=== PATIENT | female | born 2000 | race Caucasian/White ===

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

== ENCOUNTER 2020-02-01 19:09 | Emergency (ER) | payer BC, SELFPAY ==
[2020-02-01 19:43] VITALS: BP 114/68; PULSE 69; RESP 18; TEMP 36.7; O2SAT 100; BMI 20.3
--- NOTE | 2020-02-01 20:15 | HMH.EDUTC ---
[facility] Disposition Clinical Impression: Rash Disposition: Home, Self-Care Condition on Discharge: Good Instructions: DI for Rash, Methylprednisolone Additional Instructions: Clean skin with mild soap and water Start medrol dose pack on 02/02/20 Follow up with Dermatology for further treatment and evaluation of rash Return if needed Straight to ER if any life threatening symptoms Prescriptions: methylPREDNISolone [Medrol 4mg tab] 4 mg PO DIRECTED #21 tab Transmission Status: Pending to [facility] Referrals: Mikel Garcia MD [Primary Care Provider] - As needed Andrew Salazar MD [Referring] - As needed (Call office for appointment) Time of Disposition: 20:22 Medical Decision Making - Vlad Inquiry Pt receiving controlled substance: No Vlad was queried for this patient: No Vital Signs: 02/01/20 19:43 Temperature 98.0 F Temperature Source Oral Pulse Rate [Radial] 69 Respiratory Rate 18 Blood Pressure [Right Arm] 114/68 Blood Pressure Mean [Right Arm] 83 Blood Pressure Source [Right Arm] Automatic Cuff Blood Pressure Position [Right Arm] Sitting 02 Sat by Pulse Oximetry 100 Oxygen Delivery Method Room Air [facility] HPI - General Stated complaint: Rash Time Seen by Provider: 02/01/20 20:15 Mode of Arrival: Ambulatory Source of Information: Patient Limitations: No Limitations Description of Symptoms (Recalled from Triage Doc. by RN): rash HEENT Symptoms (Recalled from RN notes): No Resp Symptoms (Recalled from RN notes): No Skin Symptoms (Recalled from RN notes): Yes MS Symptoms (Recalled from RN notes): No Functional Status (Recalled from RN notes): wnl - History of Present Illness Provider Complaint: Patient states that she had a rash on her left upper arm about a week ago that she thought was ring worm States that she lives in a dorm at and she got some over the counter Medication and put it on there State that it started drying up and looking better but then she broke out in a different rash all over her chest, back and neck State that it is itching like she had a reaction to something but hasnt changed anything and unsure what she may be having a reactin too - Related Data Previous Rx's Medication Instructions Recorded Brompheniramine/Pseudoephed/Dm 5 - 10 ml PO Q4HP PRN #350 ml 04/27/18 [Bromfed DM Cough Syrup 5mL] Oseltamivir Phosphate [Tamiflu 75 mg PO BID #10 capsule 04/27/18 75mg Capsule] norgestimate 0.25 mg-ethinyl 1 tab PO ONCE 30 Days #30 tab 10/04/19 estradiol 35 mcg tablet methylPREDNISolone [Medrol 4mg 4 mg PO DIRECTED #21 tab 02/01/20 tab] Allergies Allergy/AdvReac Type Severity Reaction Status Date / Time No Known Allergies Allergy Verified 04/18/18 11:02 - Worker's Comp Is this a Worker's Comp case?: No [facility] History - Hepatitis A Screen Drug use history?: No High risk sexual behaviors?: No History of sexually transmitted infection?: No Currently employed?: No Childcare worker?: No Do you have indoor plumbing?: Yes Do you have electricity?: Yes Attestation statement:: This patient has been screened for Hepatitis A risk factors. I have reviewed the patient's past medical history: Yes Laterality Cases: Bilateral: Tonsillectomy Other Surgeries: Yes: Other Amputation: No Fractures: No Comment: & - Social History Smoking Status: Never smoker Alcohol Intake: never Substance Use Type: denies use Occupational Status: other Housing: house Family Hx:: Diabetes, Cancer, Hypertension ROS Obtained: Yes All systems reviewed & no additional complaints, Yes Systems reviewed as appropriate & no additional complaints - Constitutional Constitutional: Reports system reviewed and no additional complaints, except as docu - Eyes Eyes: Reports system reviewed and no additional complaints, except as docu - ENT Ears, Nose, Mouth, and Throat: Reports system reviewed and no additional complaints, except as docu, Denies sor
[2020-02-01 20:30] VITALS: BP 114/68; PULSE 69; RESP 18; TEMP 36.7; O2SAT 100
== END 2020-02-01 20:33 | disposition home or self-care (01) ==
PROVIDERS: Emergency Provider Nurse Practitioner; PCP Family Medicine
DX: R21 Rash and other nonspecific skin eruption (principal)
CPT/HCPCS: 99201

== ENCOUNTER 2020-11-06 13:57 | Emergency (ER) | payer BC, SELFPAY ==
[2020-11-06 14:30] VITALS: BP 116/54; PULSE 91; RESP 18; TEMP 37; O2SAT 99; BMI 21.2
--- NOTE | 2020-11-06 15:19 | HMH.EDUTC ---
[facility] [place] Disposition Clinical Impression: Bee sting reaction Qualifiers: Encounter type: initial encounter Injury intent: undetermined intent Qualified Code(s): T63.444A - Toxic effect of venom of bees, undetermined, initial encounter Disposition: Home, Self-Care Condition on Discharge: Good Instructions: How to Care for an Insect Bite or Sting, Insect Bites and Stings, DI for Insect Bites and Stings, Methylprednisolone Additional Instructions: Antihistamines decrease itching and rash Remove the stinger. Scrape the stinger out with your fingernail, edge of a credit card, or with tweezers. Do not squeeze the wound. Gently wash the area with soap and water. Elevate (raise) the area above the level of your heart, if possible. Prop the area on pillows to keep it raised comfortably. Elevate the area for 10 to 20 minutes each hour or as directed by your healthcare provider. Use compresses. Soak a clean washcloth in cold water, wring it out, and put it on the bite or sting. Use the compress for 10 to 20 minutes each hour or as directed by your healthcare provider. After 24 to 48 hours, change to warm compresses. Over the counter Benadryl may help with itching Over the counter Motrin if you can take may help with inflammation and pain Follow up with your Family Doctor if needed Straight to ER if any life threatening symptoms Start oral Medrol dose pack tomorrow 11/07/20 Prescriptions: methylPREDNISolone [Medrol 4mg tab] 4 mg PO DIRECTED #21 tab Transmission Status: Received by [facility] Referrals: Mikel Garcia MD [Primary Care Provider] - As needed Time of Disposition: 15:38 Medical Decision Making - Vlad Inquiry Pt receiving controlled substance: No Vlad was queried for this patient: No Vital Signs: 11/06/20 14:30 11/06/20 15:43 Temperature 98.6 F 98.6 F Temperature Source Oral Pulse Rate 91 H Pulse Rate [Left] 91 H Respiratory Rate 18 18 Blood Pressure 116/54 L Blood Pressure [Right Arm] 116/54 L Blood Pressure Mean [Right Arm] 74 02 Sat by Pulse Oximetry 99 - Lab Data Lab results reviewed: Yes: I reviewed the patient's lab results. Lab Results 11/06/20 15:14: Tst Clinic Negative Orders (Tests/Meds): ED MEDICATIONS Discontinued Medications Generic Name Dose Route Start Last Admin Trade Name Jens PRN Reason Stop Dose Admin Methylprednisolone Sodium Succinate 125 mg 11/06/20 15:33 11/06/20 15:39 Methylprednisolone Sod Succ 125mg Vial IM 11/06/20 15:34 125 mg ONCE ONE Administration [facility] [place] HPI - General Stated complaint: swollen left foot, bee sting Time Seen by Provider: 11/06/20 15:20 Mode of Arrival: Ambulatory Source of Information: Patient Limitations: No Limitations HEENT Symptoms (Recalled from RN notes): Yes ([place]) Resp Symptoms (Recalled from RN notes): No Skin Symptoms (Recalled from RN notes): Yes (bee sting on her L toe. skin is swollen, warm and painful) MS Symptoms (Recalled from RN notes): No Functional Status (Recalled from RN notes): weakness - History of Present Illness Provider Complaint: Patient states that she was standing in the grass a couple nights ago and something stung her in her left 4th toe/foot States that they took tweezers and pulled out the stinger States that she took Benadryl but the swelling and redness has continued to get worse and is now moving up her foot into her lower leg - Related Data Previous Rx's Medication Instructions Recorded Brompheniramine/Pseudoephed/Dm 5 - 10 ml PO Q4HP PRN #350 ml 04/27/18 [Bromfed DM Cough Syrup 5mL] Oseltamivir Phosphate [Tamiflu 75 mg PO BID #10 capsule 04/27/18 75mg Capsule] norgestimate 0.25 mg-ethinyl 1 tab PO ONCE 30 Days #30 tab 10/04/19 estradiol 35 mcg tablet methylPREDNISolone [Medrol 4mg 4 mg PO DIRECTED #21 tab 02/01/20 tab] methylPREDNISolone [Medrol 4mg 4 mg PO DIRECTED #21 tab 11/06/20 tab] Allergies Allergy/AdvReac Type
[2020-11-06 15:28] LABS: UTC Pregnancy Test, Urine Negative (Negative)
[2020-11-06 15:43] VITALS: BP 116/54; PULSE 91; RESP 18; TEMP 37
== END 2020-11-06 15:57 | disposition home or self-care (01) ==
PROVIDERS: Emergency Provider Nurse Practitioner; PCP Family Medicine
DX: T63.441A Toxic effect of venom of bees, accidental (unintentional), initial encounter (principal)
CPT/HCPCS: 81025; 96372; 99202; G0463

== ENCOUNTER → 2020-11-29 16:03 | Outpatient (CLI) | payer BC, SELFPAY | PROVIDERS: PCP Family Medicine; Visit Provider Nurse Practitioner | DX: Z11.1 Encounter for screening for respiratory tuberculosis (principal) | CPT/HCPCS: 86580 ==

== ENCOUNTER 2020-12-18 21:18 | Emergency (ER) | payer BC, SELFPAY ==
[2020-12-18 22:54] VITALS: BP 116/71; PULSE 74; RESP 18; TEMP 36.8; O2SAT 99; BMI 20.7
--- NOTE | 2020-12-18 23:03 | XR_ITS ---
PROCEDURE INFORMATION: Exam: XR Chest Exam date and time: 12/18/2020 11:03 PM Age: 20 years old Clinical indication: Cough and shortness of breath; Patient HX: Cough, SOA, covid exposure 1 week ago TECHNIQUE: Imaging protocol: XR of the chest. Views: 2 views. COMPARISON: No relevant prior studies available. FINDINGS: Lungs: Unremarkable. No consolidation. Pleural spaces: Unremarkable. No pleural effusion. No pneumothorax. Heart/Mediastinum: Unremarkable. No cardiomegaly. Bones/joints: Unremarkable. IMPRESSION: No acute findings.
[2020-12-18 23:09] LABS: Microscopic, Urine URINE MICROSCOPIC (MICROSCOPIC)
[2020-12-18 23:10] LABS: Appearance,Urine SL CLOUDY (Clear); Bilirubin,Urine Negative (Negative); Blood, Urine Negative (Negative); Color,Urine YELLOW (Yellow); Glucose,Urine (UA) Negative (Negative); Ketones,Urine 1+ (Negative); Leukocyte Esterase,Urine Negative (Negative); Nitrate,Urine Negative (Negative); Protein,Urine Negative (Negative); Specific Gravity, Urine >= 1.030 (1.005-1.030)
[2020-12-18 23:12] LABS: Urine Pregnancy, HCG Qual. Negative (Negative)
[2020-12-18 23:15] LABS: Influenza A, PCR Not Detected (NotDetected); Influenza B, PCR Not Detected (NotDetected)
[2020-12-18 23:19] LABS: Bacteria,Urine Trace /lpf; WBC,Urine Occasional #/hpf (0-3)
[2020-12-18 23:27] LABS: Strep Scrn Group A (Rapid) Negative (Negative)
[2020-12-18 23:33] VITALS: BP 115/68; PULSE 73; O2SAT 99
[2020-12-18 23:33] LABS: Basophils % 1.1 % (0.1-2.0); Eosinophils % 0.5 % (0.1-12.0); Hematocrit 40.1 % (37.0-47.0); Hemoglobin 13.4 g/dL (12.2-16.2); Lymphocytes # 1.3 K/mm3 (0.7-4.5); Mean Corpuscular HGB Conc 33.4 g/dL (31.8-35.4); Mean Corpuscular Hemoglobin 29.6 pg (27.0-31.2); Mean Corpuscular Volume 88.4 fl (81-99); Mean Platelet Volume 8.2 fl (7.4-10.4); Monocytes # 0.3 K/mm3 (0.1-1.0); Monocytes % 10.8 % (1.7-9.3); Neutrophils # 1.2 K/mm3 (1.8-7.8); Neutrophils % 42.7 % (37.0-80.0); Platelet Count 217 K/mm3 (142-424); Red Blood Count 4.54 M/mm3 (4.20-5.40); White Blood Count 2.8 K/mm3 (4.5-13.0)
[2020-12-18 23:37] LABS: Coronavirus 19, PCR Detected (NotDetected)
[2020-12-18 23:40] LABS: Alanine Aminotransferase 31 U/L (12-78); Albumin Level 3.7 g/dl (3.5-5.0); Albumin/Globulin Ratio 1.2 (1.1-1.8); Alkaline Phosphatase 53 U/L (38-126); Anion Gap 12.4 mEq/L (5-15); Aspartate Amino Transferase 33 U/L (14-36); Bilirubin,Total 0.1 mg/dl (0.2-1.3); Blood Urea Nitrogen 4 mg/dl (7-17); Calcium 8.3 mg/dl (8.4-10.2); Carbon Dioxide 27 mmol/L (22.0-30.0); Chloride 104 mmol/L (98-107); Creatinine Clearance Estimated 125 mL/min (50-200); Estimated Glomerular Filt Rate 127 ml/min (>60); GFR (African American) 154 ML/MIN (>60); Glucose 106 mg/dl (74-100); Potassium 3.4 mmoL/L (3.5-5.1); Sodium 140 mmol/L (136-145); Total Protein,Serum 6.7 g/dl (6.3-8.2)
[2020-12-18 23:45] LABS: C-Reactive Protein 7.6 mg/L (0-4)
[2020-12-18 23:56] LABS: Erythrocyte Sedimentation Rate 12 mm/hr (0-20)
[2020-12-18 23:59] LABS: Procalcitonin 0.035 ng/mL (0.0-2.0)
[2020-12-19] VITALS: BP 91/73; PULSE 75; O2SAT 98
[2020-12-19 00:30] VITALS: BP 110/72; PULSE 72; O2SAT 98
--- NOTE | 2020-12-19 00:33 | HMH.EDURI ---
ED Disposition Clinical Impression: COVID-19 Disposition: Home, Self-Care Condition on Discharge: Good Instructions: DI for COVID-19 (Suspected or Confirmed ) Additional Instructions: fluids and see pcp for follow up Referrals: Mikel Garcia MD [Primary Care Provider] - - Critical Care Critical Care Time: No Attestation: On 12/18/20, the high probability of a clinically significant, sudden or life threatening deterioration of the following system(s) required my full and direct attention, intervention and personal management. The time I documented below is in addition to time spent performing reported procedures but includes the following listed in this critical care notation. Medical Decision Making - Medical Records Medical records reviewed: Yes: I reviewed the patient's medical records. - Vlad Inquiry Pt receiving controlled substance: No Vital Signs: 12/18/20 22:54 Temperature 98.3 F Temperature Source Oral Pulse Rate [Right] 74 Respiratory Rate 18 Blood Pressure [Right Arm] 116/71 Blood Pressure Mean [Right Arm] 86 Blood Pressure Source [Right Arm] Automatic Cuff Blood Pressure Position [Right Arm] Sitting 02 Sat by Pulse Oximetry 99 Oxygen Delivery Method Room Air - Lab Data Lab results reviewed: Yes: I reviewed the patient's lab results. Lab Results 12/18/20 22:54: SARS-CoV-2 (PCR) Detected A, Influenza A Untype (PCR) Not detected, Influenza Type B (PCR) Not detected 12/18/20 22:57: Urine Color Yellow, Urine Appearance Sl cloudy, Urine pH 6.0, Ur Specific [place] >= 1.030, Urine Protein Negative, Urine Glucose (UA) Negative, Urine Ketones 1+, Urine Blood Negative, Urine Nitrate Negative, Urine Bilirubin Negative, Urine Urobilinogen 1.0, Ur Leukocyte Esterase Negative, Urine RBC None, Urine WBC Occasional, Ur Squamous Epith Cells 3-5, Urine Bacteria Trace 12/18/20 22:57: Urine HCG, Qual Negative 12/18/20 23:10: Group A Strep Rapid Negative 12/18/20 23:20: WBC 2.8 L, RBC 4.54, Hgb 13.4, Hct 40.1, MCV 88.4, MCH 29.6, MCHC 33.4, RDW 13.0, Plt Count 217, MPV 8.2, Neut % (Auto) 42.7, Lymph % (Auto) 45.0, [place] % (Auto) 10.8 H, Eos % (Auto) 0.5, Baso % (Auto) 1.1, Neut # (Auto) 1.2 L, Lymph # (Auto) 1.3, [place] # (Auto) 0.3, Eos # (Auto) 0.0, Baso # (Auto) 0.0, ESR 12 12/18/20 23:20: Sodium 140, Potassium 3.4 L, Chloride 104, Carbon Dioxide 27, Anion Gap 12.4, BUN 4 L, Creatinine 0.60, Estimated Creat Clear 125, Estimated GFR 127, Est GFR ( Amer) 154, Glucose 106 H, Calcium 8.3 L, Total Bilirubin 0.1 L, AST 33, ALT 31, Alkaline Phosphatase 53, C-Reactive Protein 7.6 H, Total Protein 6.7, Albumin 3.7, Globulin 3.0, Albumin/Globulin Ratio 1.2, Procalcitonin 0.035 Result diagrams: 12/18/20 23:20 12/18/20 23:20 Orders (Tests/Meds): ED MEDICATIONS Generic Name Dose Route Start Last Admin Trade Name Freq PRN Reason Stop Dose Admin Sodium Chloride 1,000 mls @ 999 mls/hr 12/18/20 23:15 Sod Chlor 0.9% 1000ml Bag IV 12/19/20 00:15 .[id number] MARYBETH Discontinued Medications Generic Name Dose Route Start Last Admin Trade Name Freq PRN Reason Stop Dose Admin Dexamethasone Sodium Phosphate 10 mg 12/18/20 23:03 12/18/20 23:14 Dexamethasone 4mg/Ml 1ml Vial IV 12/18/20 23:04 10 mg ONCE ONE Administration Ketorolac Tromethamine 30 mg 12/18/20 23:03 12/18/20 23:15 Ketorolac 30mg/Ml Vial IV 12/18/20 23:04 30 mg ONCE ONE Administration Ondansetron HCl 4 mg 12/18/20 23:03 12/18/20 23:15 Ondansetron 4mg/2ml Vial IV 12/18/20 23:04 4 mg ONCE ONE Administration ORDERS Category Date Time Status Strep Screen Confirmation Stat Micro 12/18/20 23:10 Received - Radiology Data #1 Image(s): Chest Image Reviewed: Yes I have reviewed radiologist's interpretation Preliminary Findings: Normal/NAD Medical Decision Narrative: has covid-19 with stable exam and labs URI/Sore Throat HPI - General Chief Complaint: Upper Respiratory Infectio
[2020-12-19 01:05] VITALS: BP 106/63; PULSE 65; RESP 18; TEMP 37.2; O2SAT 96
== END 2020-12-19 01:10 | disposition home or self-care (01) ==
PROVIDERS: Emergency Provider Emergency Medicine; PCP Family Medicine
DX: U07.1 COVID-19 (principal); R42 Dizziness and giddiness
CPT/HCPCS: 71046; 80053; 81001; 81025; 84145; 85025; 85651; 86140; 87430; 96365; 96375; 99283; J2405; U0003

== ENCOUNTER 2021-05-02 18:11 | Emergency (ER) | payer BC, SELFPAY ==
[2021-05-02 18:15] VITALS: BP 124/83; PULSE 92; RESP 20; TEMP 37; O2SAT 97; BMI 21.2
--- NOTE | 2021-05-02 18:16 | XR_ITS ---
PROCEDURE INFORMATION: Exam: XR Right Foot Exam date and time: 05/02/2021 6:16 PM Age: 20 years old Clinical indication: Injury or trauma; Fall; Sprain or strain; Foot; Right; Additional info: Injured TECHNIQUE: Imaging protocol: XR Right foot. Views: 3 or more views. COMPARISON: No relevant prior studies available. FINDINGS: Bones/joints: Bones appear intact and normally aligned with normal mineralization. A tiny accessory ossicle medial-proximal to the navicular bone. No significant arthritic deformities. There are no lytic skeletal lesions seen. Soft tissues: Mild soft tissue swelling. No radiopaque foreign bodies. No pathologic soft tissue calcification. IMPRESSION: No acute fracture or dislocation.
--- NOTE | 2021-05-02 18:16 | XR_ITS ---
PROCEDURE INFORMATION: Exam: XR Right Ankle Exam date and time: 05/02/2021 6:16 PM Age: 20 years old Clinical indication: Injury or trauma; Fall; Sprain or strain; Ankle; Right; Additional info: Injured TECHNIQUE: Imaging protocol: XR Right ankle. Views: 3 or more views. COMPARISON: CR XR FOOT RT MIN 3V 05/02/2021 6:31 PM FINDINGS: Bones/joints: Bones appear intact and normally aligned with normal mineralization. No significant arthritic deformities. There are no lytic skeletal lesions seen. Suspect small ankle effusion. Soft tissues: Lateral soft tissue swelling/edema.No radiopaque foreign bodies. No pathologic soft tissue calcification. IMPRESSION: 1. No acute fracture or dislocation. 2. Small ankle effusion. 3. Lateral soft tissue swelling, correlate for sprain or contusion.
--- NOTE | 2021-05-02 18:38 | HMH.EDUTC ---
[facility] [place] [facility] [place] Clinical Impression: Ankle sprain Qualifiers: Encounter type: initial encounter Involved ligament of ankle: unspecified ligament Laterality: right Qualified Code(s): S93.401A - Sprain of unspecified ligament of right ankle, initial encounter Disposition: Home, Self-Care Condition on Discharge: Good Instructions: How To Perform RICE (Rest, Ice, Compress, Elevate) Additional Instructions: *weight bearing as tolerated *RICE, Rest the extremity, Ice 15-20 minutes 3-4 times daily, Compress- wear the andres wrap as discussed as much as possible to help reduce swelling and pain, Elevate the extremity when at rest *Andres wrap/air splint is for support and help control swelling, use it except in the shower. Be sure that is not to tight but not to loose either *Elevate when resting *Ibuprofen as directed on package every 6-8 hours as needed for pain an inflammation. If need something more can take Tylenol in between doses of Ibuprofen to help Immediately follow up with your family doctor for new or worsening of symptoms, or no noticeable improvement over the next 3-5 days Follow up with Podiatry if pain continues Return if needed Referrals: Mikel Garcia MD [Primary Care Provider] - As needed Otilia Jo DPM [Staff Physician] - Medical Decision Making - Vlad Inquiry Pt receiving controlled substance: No Vlad was queried for this patient: No Vital Signs: 05/02/21 18:15 Temperature 98.6 F Temperature Source Oral Pulse Rate [Right Brachial] 92 H Respiratory Rate 20 Blood Pressure [Left Arm] 124/83 Blood Pressure Mean [Left Arm] 96 Blood Pressure Source [Left Arm] Automatic Cuff Blood Pressure Position [Left Arm] Sitting 02 Sat by Pulse Oximetry 97 Oxygen Delivery Method Room Air - Radiology Data #1 Image(s): Ankle Image Reviewed: Yes I have reviewed radiologist's interpretation IMPRESSION: 1. No acute fracture or dislocation. 2. Small ankle effusion. 3. Lateral soft tissue swelling, correlate for sprain or contusion. #2 Image(s): Foot/Toes Image Reviewed: Yes I have reviewed radiologist's interpretation IMPRESSION: No acute fracture or dislocation. [facility] [place] [facility] [place] - General Stated complaint: AO01/20 R ankle inj Time Seen by Provider: 05/02/21 18:38 Mode of Arrival: Ambulatory Source of Information: Patient Limitations: No Limitations Description of Symptoms (Recalled from Triage Doc. by RN): PATIENT C/O SWELLING AND PAIN TO RIGHT ANKLE AFTER SLIPPING ON ICE AND FALLING LAST NIGHT HEENT Symptoms (Recalled from RN notes): No Resp Symptoms (Recalled from RN notes): No Skin Symptoms (Recalled from RN notes): No MS Symptoms (Recalled from RN notes): Yes Functional Status (Recalled from RN notes): WNL - History of Present Illness Provider Complaint: Patient states that her dog pulled her down last night on the ice State that when she fell she twisted her right ankle and she has been having pain and swelling in ankle ever since States that today she was still hurting and having pain so she came in to get it checked out - Related Data Home Medications Medication Instructions Recorded Confirmed norgestimate-ethinyl estradioL 1 tab PO ONCE 05/02/21 05/02/21 [Previfem Tablet] Allergies Allergy/AdvReac Type Severity Reaction Status Date / Time No Known Allergies Allergy Verified 11/06/20 14:44 - Worker's Comp Is this a Worker's Comp case?: No [facility] History - Hepatitis A Screen Drug use history?: No High risk sexual behaviors?: No History of sexually transmitted infection?: No Currently employed?: No Childcare worker?: No Do you have indoor plumbing?: Yes Do you have electricity?: Yes Attestation statement:: This patient has been screened for Hepatitis A risk factors. I have reviewed the patient's past medical history: Yes Medical History: Denies:: Diabetes Mellitus Type 1, Diabetes Mellitus Type 2 Laterality Cases: Bilateral: Tonsillectomy Ot
[2021-05-02 19:09] VITALS: BP 124/83; PULSE 92; RESP 20; TEMP 37; O2SAT 97
== END 2021-05-02 19:13 | disposition home or self-care (01) ==
PROVIDERS: Emergency Provider Nurse Practitioner; PCP Family Medicine
DX: S93.401A Sprain of unspecified ligament of right ankle, initial encounter (principal); W00.0XXA Fall on same level due to ice and snow, initial encounter
CPT/HCPCS: 29515; 73610; 73630; 99203; G0463

== ENCOUNTER → 2021-05-06 17:58 | Outpatient (CLI) | payer BC, SELFPAY | PROVIDERS: Visit Provider Nurse Practitioner | DX: Z20.822 Contact with and (suspected) exposure to COVID-19 (principal) | CPT/HCPCS: C9803; U0003; U0005 ==

== ENCOUNTER 2021-05-08 17:38 | Emergency (ER) | payer BC, SELFPAY ==
[2021-05-08 19:00] VITALS: BP 112/70; PULSE 78; RESP 18; TEMP 36.9; O2SAT 99; BMI 21.2
[2021-05-08 19:06] LABS: UTC Influenza A Antigen Negative (Negative); UTC Influenza B Antigen Negative (Negative)
--- NOTE | 2021-05-08 19:37 | HMH.EDUTC ---
[facility] [place] Disposition Clinical Impression: Viral syndrome Disposition: Home, Self-Care Condition on Discharge: Good Instructions: DI for Viral Syndrome, DI for Fever (Symptom) -- Adult Additional Instructions: *Monitor Temp, Over the counter Motrin or Tylenol as directed/as needed Tylenol every 4 hours and Motrin every 6 hours (as long as your family doctor has told you that you can take it) for fever or pain. and straight to ER if unable to lower temp less than 101.0 after medication given *Warm salt water gargles may help to soothe the throat *Throat Lozenges *Warm fluids like tea with honey may help to soothe the throat *Sleep elevated *Humidifier/Vaporizer Follow up IMMEDIATELY for new or worsening symptoms or no Noticeable improvement over the next 48-72 hours. 911 for difficulty breathing or swallowing You were tested for today for COVID19 your test result should be back in the next 48-72 hours, you may check your results on the [facility]D health portal If you are positive someone from the Hospital will be calling you Make sure to drink plenty of water and gatoraid and take vitamin C, D and zinc Referrals: Mikel Garcia MD [Primary Care Provider] - As needed Forms: Work/School Release Medical Decision Making - Vlad Inquiry Pt receiving controlled substance: No Vlad was queried for this patient: No Vital Signs: 05/08/21 19:00 Temperature 98.5 F Temperature Source Oral Pulse Rate [Right Brachial] 78 Respiratory Rate 18 Blood Pressure [Right Arm] 112/70 Blood Pressure Mean [Right Arm] 84 Blood Pressure Source [Right Arm] Automatic Cuff Blood Pressure Position [Right Arm] Sitting 02 Sat by Pulse Oximetry 99 Oxygen Delivery Method Room Air - Lab Data Lab results reviewed: Yes: I reviewed the patient's lab results. Lab Results 05/08/21 18:58: Influenza Type A Ag Negative, Influenza Type B Ag Negative Orders (Tests/Meds): ORDERS Category Date Time Status Covid-19 Nasal PCR ([facility]) Routine Lab 05/08/21 18:50 Received [facility] [place] HPI - General Stated complaint: fever headache Time Seen by Provider: 05/08/21 19:37 Mode of Arrival: Ambulatory Source of Information: Patient Limitations: No Limitations Description of Symptoms (Recalled from Triage Doc. by RN): PATIENT C/O FEVER, HEADACHE, FATIGUE, AND OCCASIONAL NAUSEA SINCE WEDNESDAY HEENT Symptoms (Recalled from RN notes): Yes Resp Symptoms (Recalled from RN notes): No Skin Symptoms (Recalled from RN notes): No MS Symptoms (Recalled from RN notes): No Functional Status (Recalled from RN notes): WNL - History of Present Illness Provider Complaint: Patient states that she has been having body aches, chills and headache for several days State that she was exposed to COVID by boyfriends parents State that she was tested on Wednesday but was negative so now she was feeling worse so she came back in to get tested again - Related Data Home Medications Medication Instructions Recorded Confirmed norgestimate-ethinyl estradioL 1 tab PO ONCE 05/02/21 05/02/21 [Previfem Tablet] Allergies Allergy/AdvReac Type Severity Reaction Status Date / Time No Known Allergies Allergy Verified 11/06/20 14:44 - Worker's Comp Is this a Worker's Comp case?: No [facility] History - Hepatitis A Screen Drug use history?: No High risk sexual behaviors?: No History of sexually transmitted infection?: No Currently employed?: No Childcare worker?: No Do you have indoor plumbing?: Yes Do you have electricity?: Yes Attestation statement:: This patient has been screened for Hepatitis A risk factors. I have reviewed the patient's past medical history: Yes Medical History: Denies:: Diabetes Mellitus Type 1, Diabetes Mellitus Type 2 Laterality Cases: Bilateral: Tonsillectomy Other Surgeries: Yes: Other Amputation: No Fractures: No Comment: & - Social History Smoking Status: Never smoker Alcohol Intake: never Substance Use Type: mary
[2021-05-08 19:55] VITALS: BP 112/70; PULSE 78; RESP 18; TEMP 36.9; O2SAT 99
== END 2021-05-08 19:56 | disposition home or self-care (01) ==
PROVIDERS: Emergency Provider Nurse Practitioner; PCP Family Medicine
DX: B34.9 Viral infection, unspecified (principal); Z20.822 Contact with and (suspected) exposure to COVID-19
CPT/HCPCS: 87804; 99202; C9803; G0463; U0003; U0005

== ENCOUNTER 2021-12-17 17:05 | Emergency (ER) | payer BC, SELFPAY ==
[2021-12-17 18:10] VITALS: BP 114/57; PULSE 62; RESP 18; TEMP 36.8; O2SAT 99; BMI 23.3
--- NOTE | 2021-12-17 18:31 | EXP.UTC ---
Discharge Plan Disposition Patient Disposition: Home, Self-Care Condition: Good Prescriptions Prescriptions: New azithromycin [Zithromax Z-Pascual] 250 mg tablet 250 mg PO DAILY 6 Days Qty: 6 0RF Rx Instructions: start on day 2 of therapy methylprednisolone [Medrol (Pascual)] 4 mg tablets,dose pack See Rx Instructions .Route .COMPLEX 6 Days Qty: 21 0RF Rx Instructions: taper pack; hqlbqfulcrdinjv-hruraitnr-HR [Bromfed DM] 2-30-10 mg/5 mL Syrup 10 ml PO Q4H PRN (Reason: Cough) Qty: 240 0RF No Action norgestimate-ethinyl estradiol 1 EACH tablet 1 tab PO ONCE Referrals Follow up/Referrals: Mikel Garcia MD [Primary Care Provider] - See instructions Clinical Impressions Clinical Impression: Upper respiratory infection Stand Alone Forms Stand Alone Forms: Work/School Release Instructions Patient Instructions: Sore Throat, DI for Sinusitis, Cough Discharge ED Provider: Jayla Akers [facility] [place] HPI General Stated complaint: sore throat,fever,veronica Mode of Arrival: Ambulatory Source of Information: Patient Limitations: No Limitations Time Seen by Provider: 12/17/21 18:31 Description of Symptoms (Recalled from Triage Doc. by RN): PATIENT C/O FEVER, SORE THROAT, CONGESTION, AND NASAL DRAINAGE X 3 DAYS HEENT Symptoms (Recalled from RN notes): Yes Resp Symptoms (Recalled from RN notes): No Skin Symptoms (Recalled from RN notes): No MS Symptoms (Recalled from RN notes): No Functional Status (Recalled from RN notes): WNL History of Present Illness Provider Complaint: Patient states that she hasnt been feeling well for the last few days States thats that she has been having sore throat, sinus congestion and pressure, and fever States that she is in college and has been around alot of people States that today she was still feeling bad so she came in to get checked out Related Data Home Medications Medication Instructions Recorded Confirmed norgestimate 0.25 mg-ethinyl 1 tab PO ONCE control 05/02/21 05/02/21 estradiol 35 mcg tablet Previous Rx's Medication Instructions Recorded azithromycin 250 mg tablet 250 mg PO DAILY 6 days #6 tabs 12/17/21 (Zithromax Z-Pascual) xbovicvkmahfymh-jojahjsikisyacv-LP 10 ml PO Q4H PRN Cough #240 mL 12/17/21 2 mg-30 mg-10 mg/5 mL oral syrup (Bromfed DM) methylprednisolone 4 mg tablets in See Rx Instructions .Route 12/17/21 a dose pack (Medrol (Pascual)) .COMPLEX 6 days #21 tabs Allergies Allergy/AdvReac Type Severity Reaction Status Date / Time No Known Allergies Allergy Verified 11/06/20 14:44 Worker's Comp Is this a Worker's Comp case?: No PFSH PFSH Surgical History (Updated 12/17/21 @ 18:25 by Dana Winkler RN) History of tonsillectomy Social History (Updated 12/17/21 @ 18:25 by Dana Winkler RN) Smoking Status: Never smoker second hand exposure: No alcohol intake: never substance use type: denies use current occupational status: employed Travel in the last 8 weeks: None housing: evening shade ROS Obtained: Yes All systems reviewed & no additional complaints except as documented and Yes Systems reviewed as appropriate & no additional complaints except as documented Constitutional Constitutional: Reports system reviewed and no additional complaints, except as documented, Reports as per HPI, Reports chills, Reports fever(s) and Reports headache(s) ENT Ears, Nose, Mouth, and Throat: Reports system reviewed and no additional complaints, except as documented, Reports as per HPI, Reports headache(s), Reports nasal congestion, Reports nasal discharge and Reports sore throat Cardiovascular Cardiovascular: Reports system reviewed and no additional complaints, except as documented and Reports as per HPI Respiratory Respiratory: Reports system reviewed and no additional complaints, except as documented, Reports as per HPI and Reports cough Gastrointestinal Gastrointestingal: Reports system reviewed and no add
[2021-12-17 18:39] LABS: UTC Strep Screen (Rapid) Negative (Negative)
[2021-12-17 18:52] VITALS: BP 114/57; PULSE 62; RESP 18; TEMP 36.8; O2SAT 99
== END 2021-12-17 19:00 | disposition home or self-care (01) ==
PROVIDERS: Emergency Provider Nurse Practitioner; PCP Family Medicine
DX: J06.9 Acute upper respiratory infection, unspecified (principal)
CPT/HCPCS: 87880; 99212; G0463

== ENCOUNTER 2022-06-01 13:47 | Emergency (ER) | payer BC, SELFPAY ==
[2022-06-01 14:10] VITALS: BP 115/64; PULSE 62; RESP 20; TEMP 37.1; O2SAT 100; BMI 21.9
[2022-06-01 14:29] LABS: UTC Strep Screen (Rapid) Negative (Negative)
[2022-06-01 14:30] LABS: UTC Influenza A Antigen Negative (Negative); UTC Influenza B Antigen Negative (Negative)
--- NOTE | 2022-06-01 14:31 | EXP.UTC ---
Discharge Plan Disposition Patient Disposition: Home, Self-Care Condition: Good Prescriptions Prescriptions: New azithromycin [Zithromax] 250 mg tablet 250 mg PO UD DOSE PK Qty: 6 0RF Rx Instructions: Take two (2) tablets today, then one (1) tablet days #2 thru #5 methylprednisolone 4 mg Tablets,Dose Pack 4 mg PO DIRECTED Qty: 21 0RF phnmzmvazqdujia-cqefjhsjs-MD [Bromfed DM] 2-30-10 mg/5 mL Syrup 5 ml PO Q6H PRN (Reason: Cough) Qty: 240 0RF No Action norgestimate-ethinyl estradiol 1 EACH tablet 1 tab PO ONCE Referrals Follow up/Referrals: Mikel Garcia MD [Primary Care Provider] - See instructions Activity Restrictions/Add. Instructions Additional Instructions/Restrictions: Drink plenty of fluids. Take tylenol or ibuprofen for pain or fever. Take the medications as directed. Follow up with your regular doctor. GO TO THE ER FOR ANY WORSENING SYMPTOMS Clinical Impressions Clinical Impression: Sinusitis, Bronchitis Stand Alone Forms Stand Alone Forms: Work/School Release Instructions Patient Instructions: DI for Sinusitis Discharge ED Provider: Brad Hernandes [facility] General Stated complaint: cough,congested ,cough Mode of Arrival: Ambulatory Source of Information: Patient Limitations: No Limitations Time Seen by Provider: 06/01/22 14:30 Description of Symptoms (Recalled from Triage Doc. by RN): PATIENT C/O COUGH, CONGESTION, CHILLS, BODY ACHES AND HEADACHE THAT STARTED OVER THE WEEKEND HEENT Symptoms (Recalled from RN notes): Yes Resp Symptoms (Recalled from RN notes): Yes Skin Symptoms (Recalled from RN notes): No MS Symptoms (Recalled from RN notes): No Functional Status (Recalled from RN notes): WNL History of Present Illness Provider Complaint: She states that for the past 5 days she has had cough, chills, sore throat, and sinus congestion. Related Data Home Medications Medication Instructions Recorded Confirmed norgestimate 0.25 mg-ethinyl 1 tab PO ONCE control 05/02/21 06/01/22 estradiol 35 mcg tablet Previous Rx's Medication Instructions Recorded azithromycin 250 mg tablet 250 mg PO UD DOSE PK #6 tabs 06/01/22 (Zithromax) bmsqamyjkxcrzzr-aykkbldthmwdtrv-CP 5 ml PO Q6H PRN Cough #240 mL 06/01/22 2 mg-30 mg-10 mg/5 mL oral syrup (Bromfed DM) methylprednisolone 4 mg tablets in 4 mg PO DIRECTED #21 tabs 06/01/22 a dose pack Allergies Allergy/AdvReac Type Severity Reaction Status Date / Time No Known Allergies Allergy Verified 11/06/20 14:44 Worker's Comp Is this a Worker's Comp case?: No PFSH PFS Disclaimer: The information contained in this section may have been updated after the patient was seen, as this information can be updated by other users. Surgical History History of tonsillectomy Social History Smoking Status: Never smoker second hand exposure: No alcohol intake: never substance use type: denies use current occupational status: employed Travel in the last 8 weeks: None housing: house ROS Obtained: Yes All systems reviewed & no additional complaints except as documented Constitutional Constitutional: Reports chills and Reports fever(s) Eyes Eyes: Denies eye discharge ENT Ears, Nose, Mouth, and Throat: Reports as per HPI Cardiovascular Cardiovascular: Denies chest pain Respiratory Respiratory: Denies chest congestion and Reports cough Gastrointestinal Gastrointestingal: Reports nausea; Denies abdominal pain, constipation, cramping, diarrhea or vomiting Musculoskeletal Musculoskeletal: Denies arthralgias Integumentary/Breasts Skin/Breast: Denies rash Neurologic Neurologic: Denies paresthesias Physical Exam General General appearance: alert and in no apparent distress Eye Eye exam: Present normal appearance, PERRL and EOMI ENT ENT exam: Present mucous membr
[2022-06-01 14:32] VITALS: BP 115/64; PULSE 62; RESP 20; TEMP 37.1; O2SAT 100
== END 2022-06-01 15:30 | disposition home or self-care (01) ==
PROVIDERS: Emergency Provider Nurse Practitioner Family; PCP Family Medicine
DX: J32.9 Chronic sinusitis, unspecified (principal); J40 Bronchitis, not specified as acute or chronic
CPT/HCPCS: 87804; 87880; 99212; 99214; G0463

== ENCOUNTER 2022-08-15 16:23 | Emergency (ER) | payer BC, SELFPAY ==
[2022-08-15 16:40] VITALS: BP 97/63; PULSE 67; RESP 20; TEMP 36.9; O2SAT 100; BMI 21.2
[2022-08-15 16:55] LABS: UTC Strep Screen (Rapid) Negative (Negative)
[2022-08-15 16:57] LABS: UTC Influenza A Antigen Negative (Negative)
[2022-08-15 16:59] LABS: UTC Influenza B Antigen Negative (Negative)
--- NOTE | 2022-08-15 17:36 | EXP.UTC ---
Discharge Plan Disposition Patient Disposition: Home, Self-Care Condition: Good Prescriptions Prescriptions: New onfpkbbmrlpypzq-zrnluhifq-AA [Bromfed DM] 2-30-10 mg/5 mL syrup 10 ml PO Q4-6H PRN (Reason: cold symptoms) Qty: 120 0RF No Action norgestimate-ethinyl estradiol 1 EACH tablet 1 tab PO ONCE Referrals Follow up/Referrals: Mikel Garcia MD [Primary Care Provider] - See instructions Clinical Impressions Clinical Impression: Upper respiratory infection Instructions Patient Instructions: DI for Viral Upper Respiratory Infection -- Adult Discharge ED Provider: Geovanna Lentz [facility] [place] HPI General Stated complaint: congested, body aches, headache,sore throat Mode of Arrival: Ambulatory Source of Information: Patient Limitations: No Limitations Time Seen by Provider: 08/15/22 17:35 Description of Symptoms (Recalled from Triage Doc. by RN): PATIENT C/O CONGESTION, FATIGUE, BODY ACHES, NAUSEA AND HEADACHE X 2 DAYS HEENT Symptoms (Recalled from RN notes): Yes Resp Symptoms (Recalled from RN notes): Yes Skin Symptoms (Recalled from RN notes): No MS Symptoms (Recalled from RN notes): No Functional Status (Recalled from RN notes): WNL History of Present Illness Provider Complaint: Pt states that for the last 2 days she has had cough, clear runny nose, congestion, body aches, and fatigue. 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 She reports taking Dayquil for her symptoms. Fianc? has had similar symptoms. Related Data Home Medications Medication Instructions Recorded Confirmed norgestimate 0.25 mg-ethinyl 1 tab PO ONCE control 05/02/21 08/15/22 estradiol 35 mcg tablet Previous Rx's Medication Instructions Recorded ugzoohmppybuufi-tbuyodkjdulsjfs-GU 10 ml PO Q4-6H PRN cold symptoms 08/15/22 2 mg-30 mg-10 mg/5 mL oral syrup #120 mL (Bromfed DM) Allergies Allergy/AdvReac Type Severity Reaction Status Date / Time No Known Allergies Allergy Verified 11/06/20 14:44 Worker's Comp Is this a Worker's Comp case?: No [facility] Disclaimer: The information contained in this section may have been updated after the patient was seen, as this information can be updated by other users. Surgical History History of tonsillectomy Social History Smoking Status: Never smoker second hand exposure: No alcohol intake: never substance use type: denies use current occupational status: employed Travel in the last 8 weeks: None housing: house ROS Obtained: Yes All systems reviewed & no additional complaints except as documented Constitutional Constitutional: Reports system reviewed and no additional complaints, except as documented, Reports fatigue and Reports malaise Eyes Eyes: Reports system reviewed and no additional complaints, except as documented ENT Ears, Nose, Mouth, and Throat: Reports system reviewed and no additional complaints, except as documented, Reports nasal congestion, Reports nasal discharge, Reports post nasal drip and Reports sinus pressure Cardiovascular Cardiovascular: Reports system reviewed and no additional complaints, except as documented Respiratory Respiratory: Reports system reviewed and no additional complaints, except as documented and Reports non-productive cough Gastrointestinal Gastrointestingal: Reports system reviewed and no additional complaints, except as documented Genitourinary Female Genitourinary: Reports system reviewed and no additional complaints, except as documented Musculoskeletal Musculoskeletal: Reports system reviewed and no additional complaints, except as documented Integumentary/Breasts Skin/Breast: Reports system reviewed and no additional complaints, except as documented Neurologic Neurologic: Reports system reviewed and no additional complaints, except as documented Endocrine Endocrine: Reports syst
[2022-08-15 17:44] VITALS: BP 97/63; PULSE 67; RESP 20; TEMP 36.9; O2SAT 100
[2022-08-15 18:10] LABS: Adenovirus,PCR Not Detected (NotDetected); Bordetella Pertussis Not Detected (NotDetected); Chlamydophila Pneumoniae, PCR Not Detected (NotDetected); Coronavirus 229E Not Detected (NotDetected); Coronavirus NL63 Not Detected (NotDetected); Coronavirus OC43 Not Detected (NotDetected); Coronovirus HKU1,PCR Not Detected (NotDetected); Human Metapneumovirus Not Detected (NotDetected); Influenza A, PCR Not Detected (NotDetected); Influenza AH1, 2009 Not Detected (NotDetected); Influenza AH1, PCR Not Detected (NotDetected); Influenza AH3,PCR Not Detected (NotDetected); Influenza B, PCR Not Detected (NotDetected); Mycoplasma Pneumoniae, PCR Not Detected (NotDetected); Parainfluenza 1, PCR Not Detected (NotDetected); Parainfluenza 2, PCR Not Detected (NotDetected); Parainfluenza 3, PCR Not Detected (NotDetected); Parainfluenza 4, PCR Not Detected (NotDetected); Respiratory Syncytial Virus Not Detected (NotDetected); Rhinovirus/Enterovirus Not Detected (NotDetected)
[2022-08-15 19:48] LABS: Coronavirus 19, PCR Detected (NotDetected)
== END 2022-08-15 18:01 | disposition home or self-care (01) ==
PROVIDERS: Emergency Provider Nurse Practitioner Family; PCP Family Medicine
DX: U07.1 COVID-19 (principal); R51.9 Headache, unspecified; M79.18 Myalgia, other site; R53.83 Other fatigue
CPT/HCPCS: 87581; 87632; 87798; 87804; 87880; 99212; 99214; C9803; G0463; U0003; U0005

== ENCOUNTER 2022-10-12 17:18 | Emergency (ER) | payer BC, SELFPAY ==
[2022-10-12 17:25] VITALS: BP 122/85; PULSE 69; RESP 18; TEMP 37; O2SAT 100; BMI 20.3
--- NOTE | 2022-10-12 17:36 | EXP.UTC ---
Discharge Plan Disposition Patient Disposition: Home, Self-Care Condition: Good Prescriptions Prescriptions: New ibuprofen 600 mg tablet 600 mg PO Q6HP PRN (Reason: Moderate Pain) Qty: 20 0RF No Action norgestimate-ethinyl estradiol 1 EACH tablet 1 tab PO ONCE Referrals Follow up/Referrals: Mikel Garcia MD [Primary Care Provider] - See instructions Activity Restrictions/Add. Instructions Additional Instructions/Restrictions: Take Motrin as prescribed for pain Use dental balls as instructed in the [facility] Follow up with your Dentist as scheduled Return if needed Clinical Impressions Clinical Impression: Pain, dental Instructions Patient Instructions: DI for Dental Pain Discharge ED Provider: Jayla Akers [facility] [place] General Stated complaint: tooth ache Mode of Arrival: Ambulatory Source of Information: Patient Limitations: No Limitations Time Seen by Provider: 10/12/22 17:36 Description of Symptoms (Recalled from Triage Doc. by RN): PATIENT C/O TOOTH PAIN TO TOP RIGHT SIDE X 2 DAYS HEENT Symptoms (Recalled from RN notes): Yes Resp Symptoms (Recalled from RN notes): No Skin Symptoms (Recalled from RN notes): No MS Symptoms (Recalled from RN notes): No Functional Status (Recalled from RN notes): WNL History of Present Illness Provider Complaint: Patient states that she has a wisdom tooth coming in and it has been causing her pain States that it is on the right upper back and she is scheduled to have it removed on Wednesday but she has been taking Motrin and Tylenlol but not helping much so she came in to see if there was something she could get to help with the pain and discomfort Related Data Home Medications Medication Instructions Recorded Confirmed norgestimate 0.25 mg-ethinyl 1 tab PO ONCE control 05/02/21 10/12/22 estradiol 35 mcg tablet Previous Rx's Medication Instructions Recorded ibuprofen 600 mg tablet 600 mg PO Q6HP PRN Moderate Pain 10/12/22 #20 tabs Allergies Allergy/AdvReac Type Severity Reaction Status Date / Time No Known Allergies Allergy Verified 11/06/20 14:44 Worker's Comp Is this a Worker's Comp case?: No [facility] Disclaimer: The information contained in this section may have been updated after the patient was seen, as this information can be updated by other users. Surgical History History of tonsillectomy Social History Smoking Status: Never smoker second hand exposure: No alcohol intake: never substance use type: denies use current occupational status: employed Travel in the last 8 weeks: None housing: house ROS Obtained: Yes All systems reviewed & no additional complaints except as documented and Yes Systems reviewed as appropriate & no additional complaints except as documented Constitutional Constitutional: Reports system reviewed and no additional complaints, except as documented and Reports as per HPI ENT Ears, Nose, Mouth, and Throat: Reports system reviewed and no additional complaints, except as documented, Reports as per HPI and Reports dental pain Cardiovascular Cardiovascular: Reports system reviewed and no additional complaints, except as documented and Reports as per HPI Respiratory Respiratory: Reports system reviewed and no additional complaints, except as documented and Reports as per HPI Gastrointestinal Gastrointestingal: Reports system reviewed and no additional complaints, except as documented and as per HPI Musculoskeletal Musculoskeletal: Reports system reviewed and no additional complaints, except as documented and Reports as per HPI Physical Exam General General appearance: alert and in no apparent distress Expanded ENT Exam Mouth exam: Present other (back wisdom tooth on right appears to be half way in no redness no swelling noted in jaw patient reports area tender/sore) Respiratory Re
[2022-10-12 17:48] VITALS: BP 122/85; PULSE 69; RESP 18; TEMP 37; O2SAT 100
[2022-10-12 17:48] LABS: UTC Pregnancy Test, Urine Negative (Negative)
== END 2022-10-12 17:50 | disposition home or self-care (01) ==
PROVIDERS: Emergency Provider Nurse Practitioner; PCP Family Medicine
DX: K08.89 Other specified disorders of teeth and supporting structures (principal)
CPT/HCPCS: 81025; 99212; 99213; G0463

== ENCOUNTER 2023-01-30 17:08 | Emergency (ER) | payer BC, SELFPAY ==
[2023-01-30 17:29] VITALS: BP 117/62; PULSE 66; RESP 14; TEMP 36.7; O2SAT 100; BMI 22.1
--- NOTE | 2023-01-30 17:43 | PC.NURSE ---
Dr. Cade at [facility] for pt eval
--- NOTE | 2023-01-30 17:53 | HMH.EDGENADL ---
Discharge Plan Disposition Patient Disposition: Home, Self-Care Prescriptions Prescriptions: New ondansetron 4 mg tablet,disintegrating 4 mg PO Q8H 4 Days Qty: 12 0RF No Action norgestimate-ethinyl estradiol 1 EACH tablet 1 tab PO ONCE ibuprofen 600 mg tablet 600 mg PO Q6HP PRN (Reason: Moderate Pain) Qty: 20 0RF Referrals Follow up/Referrals: Mikel Garcia MD [Primary Care Provider] - See instructions Activity Restrictions/Add. Instructions Additional Instructions/Restrictions: At this time it was felt you are safe to be discharged home. If new or worsening symptoms please do not hesitate to return the emergency department. Please take your medications as prescribed and follow-up with your oral surgeon as discussed. Clinical Impressions Clinical Impression: Vomiting, Pain in tooth Discharge ED Provider: Vladimir Cade General Adult HPI General Chief complaint: Nausea/Vomiting/Diarrhea Stated complaint: vomiting,and tooth ache Time Seen by Provider: 01/30/23 17:37 Mode of Arrival: Ambulatory Source of Information: Patient Limitations: No Limitations Description of Symptoms (Recalled from ER Triage Doc. by RN): Pt reports dental pain on L upper side of mouth, reports had a wisdom tooth pulled on Wednesday of this week. Pt reports she was told she had a abscess also so was started on antibiotics- amoxicillin. Pt reports pain not helped with ibuprofen and tylenol. Pt reports today has been vomiting and having chills. History of Present Illness HPI narrative: Patient is a 22-year-old female who presents emergency department for evaluation of dental pain and vomiting. History is obtained by patient at bedside. Wednesday this week she had a infected wisdom tooth which was extracted. Patient was subsequently placed on amoxicillin for which she has been compliant. She has had persistent pain that has worsened today at the site of her tooth extraction. Over the last 24 hours patient has developed nonbloody vomiting and limited ability to tolerate p.o. intake, no fevers. No other acute complaints at this time. Related Data Home Medications Medication Instructions Recorded Confirmed norgestimate 0.25 mg-ethinyl 1 tab PO ONCE control 05/02/21 10/12/22 estradiol 35 mcg tablet Previous Rx's Medication Instructions Recorded ibuprofen 600 mg tablet 600 mg PO Q6HP PRN Moderate Pain 10/12/22 #20 tabs ondansetron 4 mg disintegrating 4 mg PO Q8H 4 days #12 tabs 01/30/23 tablet Allergies Allergy/AdvReac Type Severity Reaction Status Date / Time No Known Allergies Allergy Verified 11/06/20 14:44 [facility] Disclaimer: The information contained in this section may have been updated after the patient was seen, as this information can be updated by other users. Surgical History History of tonsillectomy Social History Smoking Status: Never smoker second hand exposure: No alcohol intake: never substance use type: denies use current occupational status: employed Travel in the last 8 weeks: None housing: house ROS Obtained: Yes Systems reviewed as appropriate & no additional complaints except as documented Physical Exam General General appearance: alert and in no apparent distress Head Head exam: atraumatic and normocephalic Eye Eye exam: Present PERRL and EOMI ENT ENT exam: Present normal oropharynx, mucous membranes moist and other (Left maxillary wisdom tooth socket without hemorrhage, clot, or purulence. No fluctuance. No trismus. No asymmetric swelling of the oropharynx.) Neck Neck exam: Present normal inspection and full ROM Chest Chest inspection: Present normal inspection and symmetric chest wall rise Respiratory Respiratory exam: Present normal lung sounds bilaterally; Absent respiratory distress Cardiovascular Cardiovascular exam: Pr
[2023-01-30 18:09] LABS: Coronavirus 19, PCR Not Detected (NotDetected); Influenza A, PCR Not Detected (NotDetected); Influenza B, PCR Not Detected (NotDetected)
[2023-01-30 18:19] LABS: Basophils % 0.2 % (0.1-2.0); Eosinophils # 0.1 K/mm3 (0.0-0.4); Eosinophils % 0.7 % (0.1-12.0); Hematocrit 39.3 % (37.0-47.0); Hemoglobin 13.4 g/dL (12.2-16.2); Lymphocytes # 1.9 K/mm3 (0.7-4.5); Mean Corpuscular HGB Conc 34.2 g/dL (31.8-35.4); Mean Corpuscular Hemoglobin 31.1 pg (27.0-31.2); Mean Corpuscular Volume 91.1 fl (81-99); Mean Platelet Volume 7.8 fl (7.4-10.4); Monocytes # 0.3 K/mm3 (0.1-1.0); Monocytes % 4.4 % (1.7-9.3); Neutrophils # 5.3 K/mm3 (1.8-7.8); Neutrophils % 69.7 % (37.0-80.0); Platelet Count 243 K/mm3 (142-424); Red Blood Count 4.32 M/mm3 (4.20-5.40); Red Cell Distribution Width 12.8 % (11.5-17.5); White Blood Count 7.6 K/mm3 (4.8-10.8)
--- NOTE | 2023-01-30 18:30 | PC.NURSE ---
Rounded on patient; call light within reach of patient
[2023-01-30 18:34] LABS: HCG Qualitative, Serum Negative (Negative)
[2023-01-30 18:37] LABS: Alanine Aminotransferase 44 U/L (12-78); Albumin Level 4.4 g/dl (3.5-5.0); Albumin/Globulin Ratio 1.4 (1.1-1.8); Alkaline Phosphatase 64 U/L (38-126); Anion Gap 12.8 mEq/L (5-15); Aspartate Amino Transferase 54 U/L (14-36); Bilirubin,Total 0.5 mg/dl (0.2-1.3); Blood Urea Nitrogen 7 mg/dl (7-17); Calcium 9.1 mg/dl (8.4-10.2); Carbon Dioxide 22 mmol/L (22.0-30.0); Chloride 105 mmol/L (98-107); Creatinine Clearance Estimated 158 mL/min (50-200); Estimated Glomerular Filt Rate 154 ml/min (>60); GFR (African American) 187 ML/MIN (>60); Globulin 3.1 g/dL (1.3-3.2); Glucose 95 mg/dl (74-100); Lipase 229 U/L (23-300); Potassium 3.8 mmoL/L (3.5-5.1); Sodium 136 mmol/L (136-145); Total Protein,Serum 7.5 g/dl (6.3-8.2)
[2023-01-30 18:47] VITALS: BP 105/75; PULSE 61; O2SAT 98
--- NOTE | 2023-01-30 18:52 | PC.NURSE ---
Pt given water for PO challenge
--- NOTE | 2023-01-30 18:58 | PC.NURSE ---
Dr. Cade at BS to update pt on POC. Pt able to drink water without any problems.
[2023-01-30 19:00] VITALS: BP 98/77; PULSE 61; RESP 16; O2SAT 100
--- NOTE | 2023-01-30 19:26 | PC.NURSE ---
Rounded on patient; nothing needed at this time. Call light within reach of patient
[2023-01-30 19:34] VITALS: BP 130/70; PULSE 52; RESP 16; TEMP 36.6; O2SAT 100
== END 2023-01-30 19:35 | disposition home or self-care (01) ==
PROVIDERS: Emergency Provider Emergency Medicine; PCP Family Medicine
DX: R11.2 Nausea with vomiting, unspecified (principal); K08.89 Other specified disorders of teeth and supporting structures
CPT/HCPCS: 80053; 83690; 84703; 85025; 87636; 96361; 96374; 99284; J2405

== ENCOUNTER 2023-05-24 08:00 | Emergency (ER) | payer BC, SELFPAY ==
[2023-05-24 08:15] VITALS: BP 121/77; PULSE 60; RESP 19; TEMP 36.8; O2SAT 99; BMI 24.0
--- NOTE | 2023-05-24 08:20 | EXP.UTC ---
Discharge Plan Disposition Patient Disposition: Home, Self-Care Condition: Good Prescriptions Prescriptions: No Action norgestimate-ethinyl estradiol 1 EACH tablet 1 tab PO ONCE Referrals Follow up/Referrals: Mikel Garcia MD [Primary Care Provider] - See instructions Activity Restrictions/Add. Instructions Additional Instructions/Restrictions: *Monitor Temp, Over the counter Motrin or Tylenol as directed/as needed Tylenol every 4 hours and Motrin every 6 hours (as long as your family doctor has told you that you can take it) for fever or pain. and straight to ER if unable to lower temp less than 101.0 after medication given *Warm salt water gargles may help to soothe the throat *Throat Lozenges? *Warm fluids like tea with honey may help to soothe the throat? *Sleep elevated *Humidifier/Vaporizer Follow up IMMEDIATELY for new or worsening symptoms or no Noticeable improvement over the next 48-72 hours. 911 for difficulty breathing or swallowing Clinical Impressions Clinical Impression: Viral upper respiratory illness Instructions Patient Instructions: DI for Fever (Symptom) -- Adult, DI for Viral Syndrome Discharge ED Provider: Jayla Akers [facility] General Stated complaint: fever wants tested for flu Time Seen by Provider: 05/24/23 08:21 History of Present Illness Provider Complaint: Patient states that several of her family members has the flu and last night she started with low grade fever, nausea and drainage states that she came in this morning to get tested for the flu to make sure she doesnt have it Related Data Home Medications Medication Instructions Recorded Confirmed norgestimate 0.25 mg-ethinyl 1 tab PO ONCE control 05/02/21 05/24/23 estradiol 35 mcg tablet Allergies Allergy/AdvReac Type Severity Reaction Status Date / Time No Known Allergies Allergy Verified 11/06/20 14:44 [facility] Disclaimer: The information contained in this section may have been updated after the patient was seen, as this information can be updated by other users. Surgical History History of tonsillectomy Social History Smoking Status: Never smoker second hand exposure: No alcohol intake: never substance use type: denies use current occupational status: employed Travel in the last 8 weeks: None housing: house ROS Obtained: Yes All systems reviewed & no additional complaints except as documented and Yes Systems reviewed as appropriate & no additional complaints except as documented Constitutional Constitutional: Reports system reviewed and no additional complaints, except as documented, Reports as per HPI, Reports body ache and Reports fever(s) ENT Ears, Nose, Mouth, and Throat: Reports system reviewed and no additional complaints, except as documented, Reports as per HPI, Reports nasal congestion and Reports nasal discharge Cardiovascular Cardiovascular: Reports system reviewed and no additional complaints, except as documented and Reports as per HPI Respiratory Respiratory: Reports system reviewed and no additional complaints, except as documented and Reports as per HPI Gastrointestinal Gastrointestingal: Reports system reviewed and no additional complaints, except as documented, as per HPI and nausea Genitourinary Female Genitourinary: Reports system reviewed and no additional complaints, except as documented and Reports as per HPI Physical Exam General General appearance: alert and in no apparent distress ENT ENT exam: Present mucous membranes moist Respiratory Respiratory exam: Present normal lung sounds bilaterally; Absent respiratory distress or wheezes Cardiovascular Cardiovascular exam: Present regular rate, normal rhythm and normal heart sounds Neurological Exam Neurological exam: Present alert, oriented X3 and normal gait Medical Decision Making Vlad Inquiry Pt receiving controlled substance: No Vlad was queried for this patient: No Lab Data Lab results reviewed: Yes I reviewed the patient's lab results.
[2023-05-24 08:37] LABS: UTC Influenza A Antigen Negative (Negative); UTC Influenza B Antigen Negative (Negative)
[2023-05-24 08:56] VITALS: BP 121/77; PULSE 60; RESP 19; TEMP 36.8; O2SAT 99
== END 2023-05-24 08:57 | disposition home or self-care (01) ==
PROVIDERS: Emergency Provider Nurse Practitioner; PCP Family Medicine
DX: R09.81 Nasal congestion (principal); R50.9 Fever, unspecified; J06.9 Acute upper respiratory infection, unspecified; M79.18 Myalgia, other site; B34.9 Viral infection, unspecified
CPT/HCPCS: 87804; 99212; 99213; G0463

== ENCOUNTER 2024-01-24 11:13 | Day surgery (SDC) | payer OTHER, BC, SELFPAY ==
[2024-01-21 13:41] VITALS: BMI 22.1
[2024-01-24] MEDS: LACTATED RINGERS 1000ML 1,000 ML 25 ML IV (11:50)
[2024-01-24 11:52] VITALS: BP 114/66; PULSE 70; RESP 18; TEMP 36.9; O2SAT 100
[2024-01-24 12:04] LABS: Urine Pregnancy, HCG Qual. Negative (Negative)
--- NOTE | 2024-01-24 12:04 | P.PNANES_ITS ---
[facility] Disclaimer: The information contained in this section may have been updated after the patient was seen, as this information can be updated by other users. Medical History (Updated 01/24/24 @ 11:52 by Vignesh Herring RN) No significant past medical history Surgical History History of tonsillectomy Family History Other No significant family history Social History Smoking Status: Never smoker second hand exposure: No alcohol intake: never substance use type: denies use current occupational status: employed Travel in the last 8 weeks: None housing: house [facility] Anesthesia Checklist Patient Identification Patient Identification: Arm Band and Verbal (Name & ) Structural Data Admitted From: Home Planned Operative Procedure/s: Colonoscopy Consent for Planned Operative Procedure(s) Verified: Yes Verified Documents: Surgical Consent and History and Physical NPO Status Verified Time NPO: 10:00 Chart Verification Results Verified: CBC, BMP and Chest Xray Additional verifications Patient : No Anesthesia Reactions: No Cardiovascular Assessment Heart Sounds: S1 & S2 Pulse Rhythm: Irregular Peripheral Edema: No Airway Assessment Mallampati Score:: Class II C-Spine Mobility Assessed: Yes TMJ Mobility Assessed: Yes (+ LEFT TMJ dysfunction/pain) Dentition: Good Dentition (Nothing loose per pt.) Neurological Assessment Level of Consciousness: Awake, Alert, Appropriate and Follows Commands Hx Seizures: No Numbness or tingling in extremities: No Anesthesia Plan Anesthesia Risk discussed: Yes Anesthesia Plan: Verified ASA Class: I Anesthesia Type: MAC
--- NOTE | 2024-01-24 12:39 | P.HP_ITS ---
History of Present Illness *Admission Date: 01/24/24 *Reason for visit:: Screening *History of present illness: [default value] who is here for [default value]. The examination is deemed medically necessary for [default value]. The patient has been seen, interviewed and examined prior to the procedure by both myself and the anesthesia provider. [facility] Disclaimer: The information contained in this section may have been updated after the patient was seen, as this information can be updated by other users. Medical History (Updated 01/24/24 @ 11:52 by Vignesh Herring RN) No significant past medical history Surgical History History of tonsillectomy Family History (Reviewed 01/24/24 @ :52 by Vignesh Herring RN) Other No significant family history Social History Smoking Status: Never smoker second hand exposure: No alcohol intake: never substance use type: denies use current occupational status: employed Travel in the last 8 weeks: None housing: house Other Medical History Have you received the Flu Vaccine for this season: No Have you received the Pneumonia Vaccine: No Meds Home Medications and Allergies Home Medications ?Medication ?Instructions ?Recorded ?Confirmed ?Type norgestimate 0.25 mg-ethinyl 1 tab PO ONCE control 05/02/21 01/21/24 History estradiol 35 mcg tablet New Prescriptions to Start Prescriptions: Allergies Allergy/AdvReac Type Severity Reaction Status Date / Time No Known Allergies Allergy Verified 01/21/24 13:41 Exam Data for Last 24 hours Vital signs and Labs for Last 24 Hours: Temp Pulse Resp BP Pulse Ox O2 Del Method 98.4 F 70 18 114/66 100 Room Air 01/24/24 11:52 01/24/24 11:52 01/24/24 11:52 01/24/24 11:52 01/24/24 11:52 01/24/24 11:52 Laboratory Results - last 24 hr 01/24/24 11:40: Urine HCG, Qual Negative I & O for Last 24 hours: Intake & Output 01/21/24 01/22/24 01/23/24 01/24/24 23:59 23:59 23:59 23:59 Weight 125 lb
[2024-01-24 13:07] VITALS: O2SAT 100
--- NOTE | 2024-01-24 13:13 | P.HP_ITS ---
History of Present Illness *Admission Date: 01/24/24 *Reason for visit:: Bright red rectal bleeding *History of present illness: Ms. Cody is a 23-year-old female who is here for diagnostic colonoscopy. The examination is deemed medically necessary for bright red rectal bleeding. The patient has been seen, interviewed and examined prior to the procedure by both myself and the anesthesia provider. [facility] Disclaimer: The information contained in this section may have been updated after the patient was seen, as this information can be updated by other users. Medical History (Updated 01/24/24 @ 13:14 by Stas Lugo II, MD) No significant past medical history Surgical History History of tonsillectomy Family History Other No significant family history Social History Smoking Status: Never smoker second hand exposure: No alcohol intake: never substance use type: denies use current occupational status: employed Travel in the last 8 weeks: None housing: house Other Medical History Have you received the Flu Vaccine for this season: No Have you received the Pneumonia Vaccine: No Meds Home Medications and Allergies Home Medications ?Medication ?Instructions ?Recorded ?Confirmed ?Type norgestimate 0.25 mg-ethinyl 1 tab PO ONCE control 05/02/21 01/21/24 History estradiol 35 mcg tablet New Prescriptions to Start Prescriptions: Allergies Allergy/AdvReac Type Severity Reaction Status Date / Time No Known Allergies Allergy Verified 01/21/24 13:41 Exam Data for Last 24 hours Vital signs and Labs for Last 24 Hours: Temp Pulse Resp BP Pulse Ox O2 Del Method O2 Flow Rate 98.4 F 70 18 114/66 100 Nasal Cannula 5 01/24/24 11:52 01/24/24 11:52 01/24/24 11:52 01/24/24 11:52 01/24/24 11:52 01/24/24 13:07 01/24/24 13:07 Laboratory Results - last 24 hr 01/24/24 11:40: Urine HCG, Qual Negative I & O for Last 24 hours: Intake & Output 01/21/24 01/22/24 01/23/24 01/24/24 23:59 23:59 23:59 23:59 Weight 125 lb *Routine HEENT Exam Head: Present normocephalic Eye: Present EOMI and PERRL ENT: Present mucous membranes moist *Routine Neck Exam Neck: Present supple *Routine Respiratory Exam Respiratory: Present CTA bilaterally *Routine Cardiovascular Exam Cardiovascular: Present RRR *Routine Abdominal Exam Abdominal: Present soft and normoactive bowel sounds; Absent tenderness *Routine Rectal Exam Rectal:: deferred *Routine Genitalia Exam Genitalia:: deferred *Routine Extremities Exam Extremities: Absent cyanosis, clubbing or edema *Routine Skin Exam Skin: Present warm; Absent rash *Routine Neurological Exam Neurological: Present alert and oriented X3 Assessment and Plan *Assessment and plan (1) Bright red rectal bleeding: Status: Acute Category: Medical Code(s): K62.5 - Hemorrhage of anus and rectum (2) Constipation: Status: Acute Category: Medical Code(s): K59.00 - Constipation, unspecified Plan A/P: 1. Bright red rectal bleeding is the preprocedural diagnosis. The patient will be anesthetized/sedated using MAC sedation. The patient has been seen and examined. Cardiac and lung assessment prior to the examination is stable. Proceed with planned diagnostic colonoscopy
--- NOTE | 2024-01-24 13:15 | P.PCN_ITS ---
[facility] Procedure Note Date: 01/24/24 Time: 13:15 Procedure Note:: Colonoscopy Procedure Report: Colonoscopy with monopolar coagulation/ablation of internal hemorrhoids Endoscopist: Stas Lugo II, MD Referring physician: Duane Munroe MD Date of Procedure: January 24, 2024 Equipment: Olympus 190 variable stiffness pediatric colonoscope Sedation: MAC sedation Indication: Ms. Cody is a 23-year-old female with longstanding constipation. In the last couple of months, she had bright red rectal bleeding that occurred daily for 3 weeks. Now she gets of bright red blood intermittently. This is new. She does report some dyspepsia with epigastric abdominal discomfort. She has bloating, early satiety and occasional nausea and heartburn. She does note mucus with her stools intermittently. She reports no weight loss. She often has trapped gas and is unable to pass flatus. This leads to some crampy abdominal discomfort. She does state that her paternal grandfather had colon cancer. Procedure: Prior to the procedure, a history and physical exam was performed, and patient's medications and allergies were reviewed. The risks, benefits and alternatives of the sedation and procedure were discussed with the patient. All questions were answered and informed consent was obtained. The patient was brought to the procedure room. Patient identification and proposed procedure were verified by the physician and the nurse. The patient was placed in a left lateral decubitus position and the scope was passed under direct vision. Throughout the procedure, the patient's blood pressure, pulse, and oxygen saturations were monitored continuously. The colonoscopy was accomplished without difficulty. The patient tolerated the procedure well. Findings: On digital rectal examination there was normal rectal tone. There were no external hemorrhoids. The colonoscope was introduced through the anal canal to the rectum and advanced to the cecum. The ileocecal valve and appendiceal orifice were identified. The scope was advanced a short distance into the ileum which appeared grossly normal. The scope was then withdrawn into the colon. The cecum, ascending, transverse, descending, sigmoid and rectum were grossly normal. There were no mucosal abnormalities identified. Upon retroflexion within the rectum there were grade 2 internal hemorrhoids.3 columns of hemorrhoids were ablated/coagulated using forced coagulation to destruction. The preparation was excellent throughout with [place] Preparation Score of 9. The cecal time was 8 minutes. Impression: 1. Normal colonoscopy with intubation of the terminal ileum 2. Grade 2 internal hemorrhoids status post monopolar ablation/coagulation Plan: I would encourage a fiber bowel regimen on a long-term daily maintenance basis. We may also discuss other treatments for chronic idiopathic constipation including Linzess or Trulance.
[2024-01-24 13:32] VITALS: BP 91/47; PULSE 79; RESP 16; TEMP 36.6; O2SAT 100
[2024-01-24 13:42] VITALS: BP 88/45; PULSE 52; RESP 16; O2SAT 100
[2024-01-24 13:52] VITALS: BP 104/69; PULSE 59; RESP 16; O2SAT 100
[2024-01-24 14:01] VITALS: BP 102/54; PULSE 52; RESP 16; O2SAT 100
== END 2024-01-24 14:11 | disposition home or self-care (01) ==
PROVIDERS: PCP Family Medicine; Visit Provider Internal Medicine Gastroenterology
PROC: (CPT 45388; principal; 2024-01-24 13:00)
DX: K62.5 Hemorrhage of anus and rectum (principal); K59.00 Constipation, unspecified; R10.13 Epigastric pain; Z80.0 Family history of malignant neoplasm of digestive organs; R14.0 Abdominal distension (gaseous); K64.1 Second degree hemorrhoids
CPT/HCPCS: 45388; 81025; J7120

== ENCOUNTER 2024-02-04 10:40 | Outpatient (CLI) | payer OTHER, BC, SELFPAY ==
[2024-02-04 12:16] LABS: 25-OH Vitamin D, Total 43.2 ng/mL (30-100)
[2024-02-04 12:30] LABS: Thyroid Stimulating Hormone 1.34 uIU/mL (0.465-4.68)
[2024-02-04 15:11] LABS: HIV (1&2) Antibody Rapid NONREACTIVE (NONREACTIVE)
[2024-02-05 08:51] LABS: Estradiol 5.7 pg/mL (.); FSH 0.8 mIU/mL (.); HCV Ab Non Reactive (Non Reactive); LH 0.5 mIU/mL (.); Testosterone,Total 26 ng/dL (13-71)
== END 2024-02-04 23:59 | disposition home or self-care (01) ==
LOC: LAB 10:41
PROVIDERS: PCP Family Medicine; Visit Provider Obstetrics & Gynecology
DX: R53.83 Other fatigue (principal); Z11.3 Encounter for screening for infections with a predominantly sexual mode of transmission
CPT/HCPCS: 36415; 82306; 82670; 83001; 83002; 84403; 84443; 86803; 87389

== ENCOUNTER 2024-03-01 10:04 | Emergency (ER) | payer OTHER, BC, SELFPAY ==
--- NOTE | 2024-03-01 11:49 | ED_ITS ---
Discharge Plan Disposition Patient Disposition: Home, Self-Care Condition: Good Prescriptions Prescriptions: New promethazine-DM 6.25-15 mg/5 mL Syrup 5 ml PO Q6H PRN (Reason: Cough) Qty: 240 0RF azithromycin [Zithromax] 250 mg tablet 250 mg PO UD DOSE PK Qty: 6 0RF Rx Instructions: Take two (2) tablets today, then one (1) tablet days #2 thru #5 benzonatate 100 mg capsule 100 mg PO TIDP PRN (Reason: Cough) Qty: 30 0RF methylprednisolone 4 mg Tablets,Dose Pack 4 mg PO DIRECTED 6 Days Qty: 21 0RF Rx Instructions: Take 1 pack as directed for 6 days Referrals Follow up/Referrals: Duane Munroe MD [Primary Care Provider] - See instructions Activity Restrictions/Add. Instructions Additional Instructions/Restrictions: Drink plenty of fluids. Take tylenol or ibuprofen for pain or fever. Take the medications as directed. Follow up with your regular doctor. GO TO THE ER FOR ANY WORSENING SYMPTOMS The cough medication (promethazine dm) will make you drowsy, so don't drive or operate heavy machinery after taking it. Clinical Impressions Clinical Impression: Bronchitis Instructions Patient Instructions: DI for Acute Bronchitis, Promethazine, Benzonatate, Methylprednisolone, Azithromycin Print Language Print Language: Latvian Discharge ED Provider: Brad Hernandes [facility] [place] General Stated complaint: cough congestion Time Seen by Provider: 03/01/24 11:49 Related Data Previous Rx's ?Medication ?Instructions ?Recorded azithromycin 250 mg tablet 250 mg PO UD DOSE PK #6 tabs 03/01/24 (Zithromax) benzonatate 100 mg capsule 100 mg PO TIDP PRN Cough #30 caps 03/01/24 methylprednisolone 4 mg tablets in 4 mg PO DIRECTED 6 days #21 tabs 03/01/24 a dose pack promethazine-DM 6.25 mg-15 mg/5 mL 5 ml PO Q6H PRN Cough #240 mL 03/01/24 oral syrup Allergies Allergy/AdvReac Type Severity Reaction Status Date / Time No Known Allergies Allergy Verified 02/04/24 08:42 [facility] Disclaimer: The information contained in this section may have been updated after the patient was seen, as this information can be updated by other users. Medical History (Updated 03/01/24 @ 12:02 by Brad Hernandes APRN) Family history of breast cancer Decreased libido without sexual dysfunction Women's annual routine gynecological examination No significant past medical history Surgical History (Updated 02/04/24 @ 08:49 by Su Wiggins MA) Hx of colonoscopy History of tonsillectomy Family History Other No significant family history Social History Smoking Status: Never smoker second hand exposure: No alcohol intake: never substance use type: denies use current occupational status: employed housing: house ROS Obtained: Yes All systems reviewed & no additional complaints except as documented Constitutional Constitutional: Reports chills and Reports fever(s) Eyes Eyes: Denies eye discharge ENT Ears, Nose, Mouth, and Throat: Reports as per HPI Cardiovascular Cardiovascular: Denies chest pain Respiratory Respiratory: Denies chest congestion and Reports cough Gastrointestinal Gastrointestingal: Reports nausea; Denies abdominal pain, constipation, cramping, diarrhea or vomiting Musculoskeletal Musculoskeletal: Denies arthralgias Integumentary/Breasts Skin/Breast: Denies rash Neurologic Neurologic: Denies paresthesias Physical Exam General General appearance: alert and in no apparent distress Head Head exam: atraumatic, normocephalic and normal inspection Eye Eye exam: Present normal appearance, PERRL and EOMI ENT ENT exam: Present mucous membranes moist and normal external ear exam Expanded ENT Exam TM/Canal exam: Bilateral TM: erythema and bulging Nose exam: Absent sinus tenderness Mouth exam: Present normal external inspection; Absent drooling Teeth exam: Present normal inspection Throat exam: Present tonsillar erythema, tonsillomegaly and tonsillar exudate Neck Neck exam: Present normal inspection, full ROM and trachea midline; Absent tenderness, meningismus or lymphadenopathy Chest Chest inspection: Present normal inspection and symmetric chest wall rise; Absent tenderness Respiratory Respiratory exam: Present normal lung sounds bilaterally; Absent respiratory distress, wheezes, stridor or accessory muscle use Cardiovascular Cardiovascular exam: Present regular rate and normal rhythm; Absent systolic murmur or diastolic murmur Abdominal Exam Abdominal exam: Present soft and normal bowel sounds; Absent distention, tenderness, guarding, rebound or rigidity Extremities Exam Extremities exam: Present normal inspection and normal capillary refill; Absent calf tenderness Back Exam Back exam: Present normal inspection and full ROM; Absent tenderness, CVA tenderness (R) or CVA tenderness (L) Neurological Exam Neurological exam: Present alert, oriented X3 and CN II-XII intact Psychiatric Psychiatric exam: Present normal affect and normal mood Skin Skin exam: Present warm, dry, intact and normal color Medical Decision Making Medical Records Medical records reviewed: No I reviewed the patient's medical records. Screening: Per USPSTF and CDC recommendations, given the prevalence of disease in our region, it is our hospital?s policy to screen for HIV and viral Hepatitis for all patients aged 18 and over and those with ongoing risk factors. Vlad Inquiry Pt receiving controlled substance: No Lab Data Lab results reviewed: Yes I reviewed the patient's lab results.
[2024-03-01 11:50] VITALS: BP 115/69; PULSE 83; RESP 19; TEMP 36.4; O2SAT 100; BMI 23.0
[2024-03-01 12:04] VITALS: BP 115/69; PULSE 83; RESP 19; TEMP 36.4; O2SAT 100
== END 2024-03-01 12:09 | disposition home or self-care (01) ==
PROVIDERS: Emergency Provider Nurse Practitioner Family; PCP Family Medicine
DX: J20.9 Acute bronchitis, unspecified (principal)
CPT/HCPCS: 99213; G0381

== ENCOUNTER 2024-04-29 09:18 | Outpatient (CLI) | payer OTHER, BC, SELFPAY ==
[2024-04-29 10:50] LABS: Chol/HDL Ratio 2.4 (1-3.5); Cholesterol 129 mg/dl (140-200); HDL Cholesterol 54 mg/dl (40-60); Triglycerides 42 mg/dl (30-150); VLDL Cholesterol 8 mg/dL (0-40)
[2024-04-29 11:02] LABS: Direct LDL Cholesterol 61.75 mg/dL (100-129)
[2024-04-30 08:25] LABS: Estradiol 31.9 pg/mL (.); FSH 8.2 mIU/mL (.); LH 8.5 mIU/mL (.); Prolactin 12.3 ng/mL (4.8-33.4)
[2024-05-01 13:43] LABS: Anti-Centromere B Antibodies <0.2 AI (0.0-0.9); Anti-DNA (DS) Ab Qn <1 IU/mL (0-9); Anti-Jo-1 <0.2 AI (0.0-0.9); Anti-Smith Antibody <0.2 AI (0.0-0.9); Antichromatin Antibodies <0.2 AI (0.0-0.9); Antiscleroderma-70 Antibodies <0.2 AI (0.0-0.9); RNP Antibodies <0.2 AI (0.0-0.9); Sjogren's Anti-SS-A <0.2 AI (0.0-0.9); Sjogren's Anti-SS-B <0.2 AI (0.0-0.9)
== END 2024-04-29 23:59 | disposition home or self-care (01) ==
PROVIDERS: PCP Family Medicine; Visit Provider Obstetrics & Gynecology
DX: R68.82 Decreased libido (principal); Z80.3 Family history of malignant neoplasm of breast
CPT/HCPCS: 36415; 80061; 82670; 83001; 83002; 84146; 86225; 86235

== ENCOUNTER 2024-06-12 09:01 | Outpatient (CLI) | payer OTHER, BC, SELFPAY ==
[2024-06-12 10:04] LABS: HCG,Quantitative 27 mIU/ml (0-5.42)
[2024-06-13 03:36] LABS: Progesterone 0.2 ng/mL (.)
== END 2024-06-12 23:59 | disposition home or self-care (01) ==
PROVIDERS: PCP Family Medicine; Visit Provider Obstetrics & Gynecology
DX: Z32.01 Encounter for pregnancy test, result positive (principal)
CPT/HCPCS: 36415; 84144; 84702

== ENCOUNTER 2024-06-14 08:05 | Outpatient (CLI) | payer OTHER, BC, SELFPAY ==
[2024-06-14 10:06] LABS: HCG,Quantitative 21 mIU/ml (0-5.42)
== END 2024-06-14 23:59 | disposition home or self-care (01) ==
LOC: LAB 08:06
PROVIDERS: PCP Family Medicine; Visit Provider Obstetrics & Gynecology
DX: Z32.01 Encounter for pregnancy test, result positive (principal)
CPT/HCPCS: 36415; 84702

== ENCOUNTER 2024-06-21 07:59 | Outpatient (CLI) | payer OTHER, BC, SELFPAY ==
[2024-06-21 09:25] LABS: HCG,Quantitative < 2 mIU/ml (0-5.42)
== END 2024-06-21 23:59 | disposition home or self-care (01) ==
LOC: LAB 08:00
PROVIDERS: PCP Family Medicine; Visit Provider Obstetrics & Gynecology
DX: O03.9 Complete or unspecified spontaneous abortion without complication (principal)
CPT/HCPCS: 36415; 84702

== ENCOUNTER 2024-09-11 09:01 | Outpatient (CLI) | payer OTHER, BC, SELFPAY ==
[2024-09-11 11:26] LABS: HCG,Quantitative 475 mIU/ml (0-5.42)
[2024-09-12 08:13] LABS: Progesterone 11.4 ng/mL (.)
== END 2024-09-11 23:59 | disposition home or self-care (01) ==
LOC: LAB 09:02
PROVIDERS: PCP Family Medicine; Visit Provider Obstetrics & Gynecology
DX: Z32.01 Encounter for pregnancy test, result positive (principal)
CPT/HCPCS: 36415; 84144; 84702

== ENCOUNTER 2024-09-13 10:06 | Outpatient (CLI) | payer OTHER, BC, SELFPAY ==
[2024-09-13 11:31] LABS: HCG,Quantitative 1210 mIU/ml (0-5.42)
== END 2024-09-13 23:59 | disposition home or self-care (01) ==
LOC: LAB 10:07
PROVIDERS: PCP Family Medicine; Visit Provider Obstetrics & Gynecology
DX: O03.9 Complete or unspecified spontaneous abortion without complication (principal); Z3A.00 Weeks of gestation of pregnancy not specified
CPT/HCPCS: 36415; 84702

== ENCOUNTER 2024-09-19 09:30 | Outpatient (CLI) | payer OTHER, BC, SELFPAY ==
--- OUTSIDE RECORDS SUMMARY | 2023-06-07 11:00 | XMS_ITS ---
Author Organization [facility] Address [address] [id number] Care Team Providers Care Electric Distribution Engineer Name Role Phone Ibeth Collado Primary Care Provider Lauren Garcia Unavailable [phone] Duane Munroe Unavailable [phone] Allergies No Known Allergies Results Component Value [...] a day for 30 day(s) 08/28/2020 Not-Taking Conway-Linyah 0.25-35 MG-MCG TAKE ONE TABLET BY MOUTH EVERY DAY for 28 day(s) Active Vital Signs Blood pressure systolic 126 mm Hg 06/07/19 24 Blood pressure diastolic 84 mm Hg 024 Heart Rate 89 /min 06/07/2023 Height 63.75 in 06/07/2023 Weight 123 lbs 06/07/2023 BMI 21.28 kg/m2 06/07/2023 Encounters Encounter Location Date Provider Diagnosis [facility] [address] [facility] [address] [place] [id number] 06/07/2023 Duane Munroe Constipation, unspecified constipation type [...] * Treva CODYDOB: 1 (24 yo F)Acc No.[id number]:06/07/2023 Progress Notes Patient: Treva KWAN Provider: Jennifer Munroe M.D. :2000 A ge:22 Y S ex:Female Date:06/07/2023 Address:[address] [place] [phone] Pcp:Ibeth Collado Subjective: * Chief Complaints: * [...] to secondhand smoke. * Medications: T aking Conway-Linyah 0.25-35 MG-MCG Tablet TAKE ONE TABLET BY [...] Procedure Codes: 3 6416 CAPILLARY BLOOD DRAW, 17973 CBC WITH AUTO DIFF * Follow Up: v ia phone to report progress * Billing Information: * Visit Code: 11533 Office Visit, Est Pt., Level 3. * Procedure Codes: 01993 CAPILLARY BLOOD DRAW. 56272 CBC WITH AUTO DIFF. * Electronic signature of Vida Munroe MD on 09/20/2024 at 11:37 AM EDT Sign off status: Pending * Provider: Jennifer Munroe M.D. Date: 0 06/07/2023 Generated for Jaycee cope/Alan/eTransmitting on: 0 09/20/2024 11:37 AM EDT History and Physical Notes * HPI [...]
--- OUTSIDE RECORDS SUMMARY | 2023-11-12 10:30 | XMS_ITS ---
Author Organization [facility] Address [address] [place] [phone] Care Team Providers Care Trimmer Sorter Name Role Phone Ibeth oCllado Primary Care Provider [phone] Lauren Garcia Unavailable [phone] Duane Munroe Unavailable [phone] Allergies No Known Allergies Results Component Value [...] Duration) Notes Start Date End Date Status [place]-Linyah 0.25-35 MG-MCG TAKE ONE TABL ET BY [...] [address] [place] [phone] 11/12/2023 Duane Munroe Generalized abdomina l pain [...] * Treva CODYDOB: 1 (24 yo F)Acc No.[id number]:11/12/2023 Progress Notes Patient: Treva KWAN Provider: Jennifer Munroe M.D. :2000 A ge:23 Y S ex:Female Date:11/12/2023 Address:[address] [place] [address] , [place], [id number] Pcp:Ibeth Collado Subjective: * Chief Complaints: * [...] needed Orally Once a day , Taking [place]-Linyah 0.25-35 MG-MCG Tablet TAKE ONE TABLET BY [...] [facility]23 9:54:51 AM > faxed order to Kristen Blackwell at * Procedure Codes: 3 6416 CAPILLARY BLOOD DRAW, 19449 CBC WITH AUTO DIFF * Follow Up: v ia phone to report progress * Billing Information: * Visit Code: 67218 Office Visit, Est Pt., Level 3. * Procedure Codes: 95199 CAPILLARY BLOOD DRAW. 01647 CBC WITH AUTO DIFF. * Electronic signature of Vida Munroe MD on 09/20/2024 at 11:37 AM EDT Sign off status: Pending * Provider: Jennifer Munroe M.D. Date: 0 11/12/2023 Generated for Mishai anatoliy/Alan/eTransmitting on: 0 09/20/2024 11:37 AM EDT History [...]
--- OUTSIDE RECORDS SUMMARY | 2024-09-20 11:38 | XMS_ITS | Patient Health Record ---
Author Organization [facility] Address [address] [place] [id number] Care Team Providers Care Marine Steam Fitter Helper Name Role Phone Ibeth Collado Primary Care Provider Lauren Garcia Unavailable [phone] Duane Munroe Unavailable [phone] Allergies No Known Allergies Results Component Value [...] - 38 plat 186 100 - 400 Medications Medication SIG (Take, Route, Frequency, Duration) Notes Start Date End Date Status [place]-Linyah 0.25-35 MG-MCG TAKE ONE TABL ET BY MOUTH EVERY DAY for 28 day(s) Active Lactulose 10 GM/15ML 15 ml as needed Ora lly Once a day 06/07/2023 Active Immunizations Vaccine Route Administration Date Status Comme nts COVID 19 Pfizer Unknown 08/13/2021 Administered Fluzone PF Quad (6-35 months) Unknown 02/13/2021 Administered Fluzone PF Quad (6-35 months) Unknown 02/03/2023 Administered Hep A- Pediatric IM Intramuscular 11/16/2017 Administered IPV Unknown 09/14/2001 Administered IPV IM Intramuscular 08/04/2005 Administered Menactra IM Intramuscular 11/13/2011 Administered Menactra IM Intramuscular 11/16/2017 Administered MMR SC Subcutaneous 08/04/2005 Administered ppd ID Intradermal 11/10/2019 Administered Tetanus Dtap-Daptacel (under 7yrs) IM Intramuscular 08/04/2005 Administered Tetanus Tdap-Adacel (over 7yrs) IM Intramuscular 11/13/2011 Administered Tetanus Tdap-Adacel (over 7yrs) IM Intramuscular 07/31/2022 Administered tuberculin (ppd) ID Intradermal 10/30/2019 Administered Varivax Unknown 09/14/2001 Administered Varivax IM Intramuscular 11/18/2011 Administered xGardasil IM Intramuscular 11/13/2011 Administered Problems Problem Type SNOMED Code ICD Code Onset Dates Problem Status W/U Status Risk Notes Problem Seasonal allergi c rhinitis (477.9) Active confirmed Problem 882300273 Routine sports physical exam (Z02.5) Active confirmed Problem 835311201 Hypoglycemia (E16.2) Active confirmed Problem 53245197 Constipation, unspecified constipation type (K59.00) Active confirmed Problem 51981025 Acute viral conjunctivitis of left eye (B30.9) Active confirmed Vital Signs Heart Rate 90 /min 11/12/2023 Blood pressure diastolic 80 mm Hg 11/12/2023 Height 63.75 in 11/12/2023 Blood pressure systolic 122 mm Hg 11/12/2023 Weight 131.6 lbs 11/12/2023 BMI 22.76 kg/m2 11/12/2023 Encounters Encounter Location Date Provider Diagnosis [facility] [address] [facility] [address] [place], [place] [id number] 11/12/2023 Duane [place] Generalized abdomina l pain R10.84 and BRBPR (bright red blood per rectum) K62.5 Assessments Encounter Date Diagnosis (ICD Code) Assessment Notes Treatment Notes Treatment Clinical Notes Section Notes 11/12/2023 Generalized abdominal pain (ICD-10 - R10.84) 11/12/2023 BRBPR (bright red blood per rectum) (ICD-10 - K62.5) Plan Of Treatment Pending Test Test Name Order Date colonoscopy 11/12/2023 Insurance Providers Payer Name Payer Address Payer Phone Subscriber Number Group Number Insured Name Patient Relationship to Insured Coverage Start Date Coverage End Date [facility] [address] [address] [place] [address] [id number] Vivi Anand Child - Insured has Financial Responsibility [employer] [address] [place] [address] [id number] Vivi Anand Child - Insured has Financial Responsibility Medical (General) History Surgical History Surgery Date(Month/Year) Tonsilectomy, Adenoidectomy 09/2009 Hospitalization History Reason Date(Month/Year)
[2024-09-21 07:16] LABS: Neisseria gonorrhoeae, NAA Negative (Negative)
== END 2024-09-19 23:59 | disposition home or self-care (01) ==
LOC: LAB.DROPOF 09-20 11:32
PROVIDERS: PCP Obstetrics & Gynecology; Visit Provider Obstetrics & Gynecology
DX: O36.80X0 Pregnancy with inconclusive fetal viability, not applicable or unspecified (principal); Z3A.00 Weeks of gestation of pregnancy not specified
CPT/HCPCS: 87491; 87591

== ENCOUNTER 2024-10-02 14:29 | Outpatient (CLI) | payer OTHER, BC, SELFPAY ==
--- OUTSIDE RECORDS SUMMARY | 2023-06-07 11:00 | XMS_ITS ---
Author Organization [facility] Address [address] [id number] Care Team Providers Care Linen Attendant Name Role Phone Ibeth Collado Primary Care Provider Lauren Garcia Unavailable [phone] Duane Munroe Unavailable [phone] Allergies No Known Allergies Results Component Value Reference Range Notes CBC Fingerstick (in house) Reviewed date:06/08/2023 08:27:23 AM Interpretation: Performing Lab: Notes/Report: wbc 6.3 3.5 - 10 lym 41.1 15 - 50 mid 7.4 2 - 15 gran 51.5 35 - 80 rbc 4.37 3.5 - 5.5 hgb 13.1 11.5 - 16.5 hct 39.3 35 - 55 mcv 89.8 75 - 100 mch 30.0 25 - 35 mchc 33.4 31 - 38 plat 187 100 - 400 REASON FOR VISIT GI issues and rash Medications Medication SIG (Take, Route, Frequency, Duration) Notes Start Date End Date Status Lactulose 10 GM/15ML 15 ml as needed Ora lly Once a day 06/07/2023 Active Trulance 3 MG 1 tab(s) orally once a day for 30 day(s) 08/28/2020 Not-Taking Bryan-Linyah 0.25-35 MG-MCG TAKE ONE TABLET BY MOUTH EVERY DAY for 28 day(s) Active Vital Signs Blood pressure systolic 126 mm Hg 06/07/19 24 Blood pressure diastolic 84 mm Hg 024 Heart Rate 89 /min 06/07/2023 Height 63.75 in 06/07/2023 Weight 123 lbs 06/07/2023 BMI 21.28 kg/m2 06/07/2023 Encounters Encounter Location Date Provider Diagnosis [facility] [address] [facility] [address] [place] [id number] 06/07/2023 Duane Munroe Constipation, unspecified constipation type K59.00 and Rash R21 Assessments Encounter Date Diagnosis (ICD Code) Assessment Notes Treatment Notes Treatment Clinical Notes Section Notes 06/07/2023 Constipation, unspecified constipation type (ICD-10 - K59.00) 06/07/2023 Rash (ICD-10 - R21) Plan Of Treatment Medication Medication Name Sig Start Date Stop Date Notes Lactulose 10 GM/15ML 15 ml as needed Orally Once a day Next Appt Details Follow Up: via phone to repo rt progress, Reason: Progress Notes * Treva CODYDOB: 1 (24 yo F)Acc No.[id number]:06/07/2023 Progress Notes Patient: Treva KWAN Provider: Jennifer Munroe M.D. :2000 A ge:22 Y S ex:Female Date:06/07/2023 Address:[address] [place] [id number] Pcp:Ibeth Collado Subjective: * Chief Complaints: * 1 . GI issues and rash. * HPI: D ermatology: 22 year old female presents with c/o rash p t is here for a rash underneath breast, abdomen, and back. ongoing x one week. . G astroenterology: c/o Constipation p t is here for persisent constipation, pain in abdomen, bloating, blood in stool. blood is bright in color, even when no stool is passed. ongoing x three weeks.. * ROS: C ARDIOLOGY: no D izziness. n o S hortness of breath. G ASTROENTEROLOGY: no N ausea. n o V omiting. U ROLOGY: no D ifficulty urinating. n o B lood in urine. * Medical History: M edical History Verified. * Surgical History: T onsilectomy, Adenoidectomy 09/2009. * Hospitalization/Major Diagno stic Procedure: D enies Past Hospitalization. * Family History: F ather: alive 53 yrs. M other: alive 51 yrs. 1 brother(s) . . * Social History: C URRENT TOBACCO USE S moking Status: Patient does NOT smoke. C affeine: yes, frequency:. Home smoke detector use: yes. Past smoking status: no, Smoking status: very rarely exposed to secondhand smoke. * Medications: T aking Bryan-Linyah 0.25-35 MG-MCG Tablet TAKE ONE TABLET BY MOUTH EVERY DAY , Not-Taking Trulance 3 MG Tablet 1 tab(s) orally once a day , Medication List reviewed and reconciled with the patient * Allergies: N .K.D.A. Objective: * Vitals: W t:123, Temp:98.1, BP:126/84, HR:89, Nurse: , Ht: 63.75, BMI:21.28. * Examination: G eneral Examination: General Appearance: N AD. Heart: R SR. Lungs: c lear to auscultation. Abdomen: bowel sounds present, soft and nontender. Skin: v viki faint reddened area of skin over the mid upper abdomen. Assessment: * Assessment: 1. C onstipation, unspecified constipation type - K59.00 (Primary) 2 . R rashard - R21 Plan: * Treatment: 2. R rashard L AB: CBC Fingerstick (in house) (Collection Date & Time - 06/07/2023) Value Reference Range w bc 6.3 3.5 - 10 * l ym 41.1 15 - 50 * m id 7.4 2 - 15 * g ran 51.5 35 - 80 * r bc 4.37 3.5 - 5.5 * h gb 13.1 11.5 - 16.5 * h ct 39.3 35 - 55 * m cv 89.8 75 - 100 * m ch 30.0 25 - 35 * m chc 33.4 31 - 38 * p lat 187 100 - 400 * Anny Blackwell 06/07/2023 3:03:01 PM > , Provider reviewed results while patient in office. * Procedure Codes: 3 6416 CAPILLARY BLOOD DRAW, 75690 CBC WITH AUTO DIFF * Follow Up: v ia phone to report progress * Billing Information: * Visit Code: 44963 Office Visit, Est Pt., Level 3. * Procedure Codes: 67349 CAPILLARY BLOOD DRAW. 49264 CBC WITH AUTO DIFF. * Electronic signature of Vida Munroe MD on 10/02/2024 at 02:32 PM EDT Sign off status: Pending * Provider: Jennifer Munroe M.D. Date: 0 06/07/2023 Generated for Jaycee cope/Alan/eTransmitting on: 0 10/02/2024 02:32 PM EDT History and Physical Notes * HPI (History of Present Illness) Category Sub-Category Detail Notes Category Not es Dermatology rash pt is here for a rash underneath breast, abdomen, and back. ongoing x one week. Gastroenterology Constipation pt is here for persisent constipation, pain in abdomen, bloating, blood in stool. blood is bright in color, even when no stool is passed. ongoing x three weeks. Examination Category Sub-Category Detail Notes Category Not es General Examination Heart: RSR Lungs: clear to auscultatio n Abdomen: bowel sounds present , soft and nontender General Appearance: NAD Skin: very faint reddened area of skin over the mid upper abdomen
--- OUTSIDE RECORDS SUMMARY | 2023-11-12 10:30 | XMS_ITS ---
Author Organization [facility] Address [address] [place] [id number] Care Team Providers Care Lift Driver Name Role Phone Ibeth Collado Primary Care Provider [phone] Lauren Garcia Unavailable [phone] Duane Munroe Unavailable [phone] Allergies No Known Allergies Results Component Value [...] Duration) Notes Start Date End Date Status [place]-Linyah 0.25-35 MG-MCG TAKE ONE TABL ET BY MOUTH EVERY DAY for 28 day(s) Active Lactulose 10 GM/15ML 15 [...] [address] [place] [id number] 11/12/2023 Duane Munroe Generalized abdomina l pain [...] * Treva CODYDOB: 1 (24 yo F)Acc No.[id number]:11/12/2023 Progress Notes Patient: Treva KWAN Provider: Jennifer Munroe M.D. :2000 A ge:23 Y S ex:Female Date:11/12/2023 Address:[address] [place] [address] , [place], [id number] Pcp:Ibeth Collado Subjective: * Chief Complaints: * [...] needed Orally Once a day , Taking Foster-Linyah 0.25-35 MG-MCG Tablet TAKE ONE TABLET BY MOUTH EVERY DAY , Discontinued Trulance 3 MG Tablet 1 tab(s) orally once a day , Medication List reviewed and reconciled with the patient * Allergies: N .K.D.A. Objective: * Vitals: W t:131.6, Temp:97.9, BP:122/80, HR:90, Nurse:jon, Ht: 63.75, BMI:22.76. * Examination: G astroenterology: General Appearance: p leasant, NAD. Oral cavity: n ormal. Sclera: a nicteric. Heart sounds: r egular, normal S1 S2. Lungs: c lear, no rales or wheezes. Abdomen: B S present, soft, nontender, no guarding or rigidity, no masses felt. Rectal exam: anus WNL, no external hemorrhoids. ? Assessment: * Assessment: 1. G eneralized abdominal [...] PM > ?[facility] 9:54:51 AM > faxed order to Kristen Blackwell at * Procedure Codes: 3 6416 CAPILLARY BLOOD DRAW, 62578 CBC WITH AUTO DIFF * Follow Up: v ia phone to report progress * Billing Information: * Visit Code: 34669 Office Visit, Est Pt., Level 3. * Procedure Codes: 68608 CAPILLARY BLOOD DRAW. 39999 CBC WITH AUTO DIFF. * Electronic signature of Vida Munroe MD on 10/02/2024 at 02:32 PM EDT Sign off status: Pending * Provider: Jennifer Munroe M.D. Date: 0 11/12/2023 Generated for Mishai anatoliy/Alan/eTransmitting on: 0 10/02/2024 02:32 PM EDT History [...]
--- OUTSIDE RECORDS SUMMARY | 2024-10-02 14:32 | XMS_ITS | Patient Health Record ---
Author Organization [facility] Address [address] [place] [id number] Care Team Providers Care Soft Crab Shedder Name Role Phone Ibeth Collado Primary Care Provider Lauren Garcia Unavailable [phone] Duane Mun[place] Unavailable [phone] Allergies No Known Allergies Results Component Value [...] Duration) Notes Start Date End Date Status [place]-Linyah 0.25-35 MG-MCG TAKE ONE TABL ET BY [...] Status W/U Status Risk Notes Problem Seasonal allergic rhinitis (027501472) Seasonal allergic rhinitis (477.9) Active confirmed Problem 739153519 Routine sports physical exam (Z02.5) Active confirmed Problem 750926792 Hypoglycemia (E16.2) Active confirmed Problem 74247817 Constipation, unspecified constipation type (K59.00) Active confirmed Problem 60105818 Acute viral conjunctivitis of left eye (B30.9) Active confirmed Vital Signs Heart Rate 90 /min 11/12/2023 Blood pressure diastolic 80 mm Hg 11/12/2023 Height 63.75 in 11/12/2023 Blood pressure systolic 122 mm Hg 11/12/2023 Weight 131.6 lbs 11/12/2023 BMI 22.76 kg/m2 11/12/2023 Encounters Encounter Location Date Provider Diagnosis [facility] [address] [facility] [address] [place], [place] [id number] 11/12/2023 Duane [place] Generalized abdomina l pain R10.84 and BRBPR [...] Insured Coverage Start Date Coverage End Date [facility] [address] [address] [place] [address] [id number] Vivi Anand Child - Insured has Financial Responsibility [employer] [address] [place] [address] [id number] B [id number] Vivi Anand Child - Insured has Financial Responsibility Medical (General) History Surgical History Surgery Date(Month/Year) Tonsilectomy, Adenoidectomy 09/2009 Hospitalization History Reason Date(Month/Year)
[2024-10-02 15:13] LABS: Basophils % 0.2 % (0.1-2.0); Eosinophils # 0.1 Kmm3 (0.0-0.4); Hematocrit 35.7 % (37.0-47.0); Hemoglobin 12.3 g/dL (12.2-16.2); Immature Granulocytes # 0.03 10^3uL; Immature Granulocytes % 0.3 %; Lymphocytes # 2.1 K/mm3 (0.7-4.5); Lymphocytes % 21.3 % (10-50); Mean Corpuscular HGB Conc 34.5 g/dL (31.8-35.4); Mean Corpuscular Hemoglobin 29.9 pg (27.0-31.2); Mean Corpuscular Volume 86.9 fl (81-99); Mean Platelet Volume 9.6 fl (7.4-10.4); Monocytes % 9.9 % (1.7-9.3); Neutrophils # 6.7 K/mm3 (1.8-7.8); Neutrophils % 67.3 % (37.0-80.0); Nucleated Red Blood Cells # 0 10^3/uL; Nucleated Red Blood Cells % 0 %; Platelet Count 242 K/mm3 (142-424); Red Blood Count 4.11 M/mm3 (4.20-5.40); Red Cell Distribution Width 12.2 % (11.5-17.5); Red Cell Distribution Width-SD 38.9 fL; White Blood Count 9.9 K/mm3 (4.8-10.8)
[2024-10-02 19:25] LABS: RPR W/RFX Titers Nonreactive (Nonreactive)
[2024-10-03 07:21] LABS: Hepatitis B Surface Antigen Negative (Negative)
[2024-10-03 13:31] LABS: Rubella Antibodies, IgG 0.93 index (Immune >0.99)
== END 2024-10-02 23:59 | disposition home or self-care (01) ==
LOC: LAB 14:30
PROVIDERS: PCP Family Medicine; Visit Provider Obstetrics & Gynecology
DX: O36.80X0 Pregnancy with inconclusive fetal viability, not applicable or unspecified (principal); Z3A.00 Weeks of gestation of pregnancy not specified
CPT/HCPCS: 36415; 85025; 86592; 86762; 86850; 87340

== ENCOUNTER 2024-12-27 13:47 | Outpatient (CLI) | payer BC, SELFPAY ==
--- OUTSIDE RECORDS SUMMARY | 2023-11-12 10:30 | XMS_ITS ---
Author Organization [facility] Address [address] [place] [phone] Care Team Providers Care Mine Engineering Supervisor Name Role Phone Ibeth Collado Primary Care Provider Lauren Garcia Unavailable [phone] Duane Munroe Unavailable [phone] Allergies No Known Allergies Results Component Value [...] Duration) Notes Start Date End Date Status [place]-Linyah 0.25-35 MG-MCG TAKE ONE TABL ET BY [...] [address] [place] [phone] 11/12/2023 Duane Munroe Generalized abdomina l pain [...] * Treva CODYDOB: 1 (24 yo F)Acc No.[id number]:11/12/2023 Progress Notes Patient: Treva KWAN Provider: Jennifer Munroe M.D. :2000 A ge:23 Y S ex:Female Date:11/12/2023 Address:[address] [place] [address] , [place], [id number] Pcp:Ibeth Collado Subjective: * Chief Complaints: * [...] needed Orally Once a day , Taking [place]-Linyah 0.25-35 MG-MCG Tablet TAKE ONE TABLET BY [...] PM > ?Imaging: [facility]* [facility]/15/[facility]23 9:54:51 AM > faxed order to Kristen Rishi at * Procedure Codes: 3 6416 CAPILLARY BLOOD DRAW, 42148 CBC WITH AUTO DIFF * Follow Up: v ia phone to report progress * Images: Billing Information: * Visit Code: 28742 Office Visit, Est Pt., Level 3. * Procedure Codes: 28624 CAPILLARY BLOOD DRAW. 84177 CBC WITH AUTO DIFF. * Electronic signature of Vida Munroe MD on 12/27/2024 at 01:52 PM EDT Sign off status: Pending * Provider: Jennifer Munroe M.D. Date: 0 11/12/2023 Generated for Mishai ng/Alan/eTransmitting on: 0 12/27/2024 01:52 PM EDT History and Physical Notes * [...]
--- OUTSIDE RECORDS SUMMARY | 2024-12-27 13:54 | XMS_ITS | Patient Health Record ---
Author Organization [facility] Address [address] [place] [id number] Care Team Providers Care Counterintelligence/Humint Specialist Name Role Phone Ibeth Collado Primary Care Provider [phone] Lauren Garcia [phone] Allergies No Known Allergies Medications Medication SIG (Take, Route, Frequency, Duration) Notes Start Date End Date Status [place]-Linyah 0.25-35 MG-MCG TAKE ONE TABL ET BY [...] Status Risk Notes Problem Seasonal allergic rhinitis (541419640) Seasonal allergic rhinitis (477.9) Active confirmed Problem History and physical examination, sports participation (procedure) (627362023) Routine sports physical exam (Z02.5) Active confirmed Problem Hypoglycemia (575168810) Hypoglycemia (E16.2) Active confirmed Problem Constipation (67316891) Constipation, unspecified constipation type (K59.00) Active confirmed Problem Viral conjunctivitis (82610426) Acute viral conjunctivitis of left eye (B30.9) Active confirmed Plan Of Treatment Pending Test Test Name Order Date colonoscopy 11/12/2023 Insurance Providers Payer Name Payer Address Payer Phone Subscriber Number Group Number Insured Name Patient Relationship to Insured Coverage Start Date Coverage End Date [facility] [address] [address] [place] [address] 41 [id number] Vivi Anand Child - Insured has Financial Responsibility [employer] [address] [place] [address] [id number] Vivi Anand Child - Insured has Financial Responsibility Medical (General) History Surgical History Surgery Date(Month/Year) Tonsilectomy, Adenoidectomy 09/2009 Hospitalization History Reason Date(Month/Year)
--- NOTE | 2024-12-27 14:00 | US_ITS ---
PROCEDURE: US OB /MATERNAL DETAIL CLINICAL INDICATION: 20 week anatomy scan COMPARISON: No exams were available for comparison FINDINGS: Transabdominal sonographic images of the pelvis were obtained. From her established due date she is 20 weeks 0 days. Single viable intrauterine gestation. Breech position. Placenta: Posteriorplacenta grade 1. The placenta is low lying and measures 2.36 cm from the internal cervical os. There is an average amount of fluid. The cervix appears satisfactory. Closed and measuring 2.97 cm in length. Complete survey performed and was unremarkable on the submitted images as in PACS. No discrete anomalies identified on survey imaging by technologist. Active fetus. Three-vessel cord with satisfactory umbilical cord insertion. 4- chamber heart noted. Situs, aortic arch, LVOT, RVOT, three-vessel view appear normal. Survey of brain & ventricles Unremarkable. Cerebellum, thalamus, choroid plexus, cisterna magna appear normal. Face and neck survey unremarkable. Profile, nasion, lips and nose appeared normal. Diaphragm and chest views unremarkable. Abdomen: Both kidneys noted and unremarkable. Stomach and bladder noted and satisfactory. Spine: Survey of the spine satisfactory with no anomalies identified nor imaged. Cervical, thoracic, lower spine appear normal. Both arms and legs noted. Amniotic Fluid: Adequate. MVP 3.36 cm Measurements: Average ultrasound age 19weeks 4days. Estimated due date by ultrasound age 0205/19/2025. Estimated weight 295g BPD = 19weeks 4days HC = 19weeks 4days AC = 19weeks 5days FL = 19weeks 2days Growth Percentile= 20 Heart Rate = 138bpm Cerebellum = 19weeks 4days Humerus = 19weeks 6days HC/AC is 1.18 FL/BPD is 0.67 FL/AC is 0.21 IMPRESSION: 1. Viable fetus in the breech presentation with a posterior placenta grade 1. 2. The placenta is low lying and measures 2.36 cm from the internal cervical os. Would suggest repeat scan at 28 weeks to include transvaginal views. 3. Anatomical scan appears normal. 4. biometry is consistent with the dates. Dictated by: Sukhwinder Osei MD 12/28/2024 06:58 Sukhwinder Osei MD in [place] 12/28/2024 06:58
== END 2024-12-27 23:59 | disposition home or self-care (01) ==
LOC: RAD 13:47
PROVIDERS: PCP Family Medicine; Visit Provider Obstetrics & Gynecology
DX: O32.1XX0 Maternal care for breech presentation, not applicable or unspecified (principal); O44.42 Low lying placenta NOS or without hemorrhage, second trimester; O09.292 Supervision of pregnancy with other poor reproductive or obstetric history, second trimester; O09.892 Supervision of other high risk pregnancies, second trimester; O21.9 Vomiting of pregnancy, unspecified; Z28.39 Other underimmunization status; Z3A.20 20 weeks gestation of pregnancy
CPT/HCPCS: 76811

== ENCOUNTER 2025-01-08 16:00 | Outpatient (CLI) | payer BC, SELFPAY ==
--- OUTSIDE RECORDS SUMMARY | 2023-11-12 10:30 | XMS_ITS ---
Author Organization [facility] Address [address] [place] [id number] Care Team Providers Care Farm Marketer Name Role Phone Ibeth Collado Primary Care Provider [phone] Lauren Garcia Unavailable [phone] Duane Munroe Unavailable [phone] Allergies No Known Allergies Results Component Value [...] Duration) Notes Start Date End Date Status Mitchell-Linyah 0.25-35 MG-MCG TAKE ONE TABL ET BY MOUTH EVERY DAY; Duration: 28 day(s) Active Lactulose 10 GM/15ML 15 ml as needed Ora lly Once a day 06/07/2023 Active Vital Signs Blood pressure systolic 122 mm Hg 11/12/19 24 Blood pressure diastolic 80 mm Hg 024 Heart Rate 90 /min 11/12/2023 Height 63.75 in 11/12/2023 Weight 131.6 lbs 11/12/2023 BMI 22.76 kg/m2 11/12/2023 Encounters Encounter Location Date Provider Diagnosis [facility] [address] [place] [id number] 11/12/2023 Duane Munroe Generalized abdomina l pain [...] * Treva CODYDOB: 1 (24 yo F)Acc No.[id number]:11/12/2023 Progress Notes Patient: Treva KWAN Provider: Jennifer Munroe M.D. :2000 A ge:23 Y S ex:Female Date:11/12/2023 Address:[address] [place] [address] , [place], [id number] Pcp:Ibeth Collado Subjective: * Chief Complaints: * [...] needed Orally Once a day , Taking Mitchell-Linyah 0.25-35 MG-MCG Tablet TAKE ONE TABLET BY [...] PM > ?[facility] 11/15/2023 9:54:51 AM > faxed order to Kristen at * Procedure Codes: 3 6416 CAPILLARY BLOOD DRAW, 01347 CBC WITH AUTO DIFF * Follow Up: v ia phone to report progress * Images: Billing Information: * Visit Code: 53014 Office Visit, Est Pt., Level 3. * Procedure Codes: 26892 CAPILLARY BLOOD DRAW. 51828 CBC WITH AUTO DIFF. * Electronic signature of Vida Munroe MD on 01/09/2025 at 10:03 AM EDT Sign off status: Pending * Provider: Jennifer Munroe M.D. Date: 0 11/12/2023 Generated for Mishai ng/Alan/eTransmitting on: 0 01/09/2025 10:03 AM EDT History and Physical Notes * [...]
== END 2025-01-08 23:59 | disposition home or self-care (01) ==
LOC: LAB.DROPOF 01-09 09:53
PROVIDERS: PCP Obstetrics & Gynecology; Visit Provider Obstetrics & Gynecology
DX: O23.40 Unspecified infection of urinary tract in pregnancy, unspecified trimester (principal); Z3A.00 Weeks of gestation of pregnancy not specified
CPT/HCPCS: 87086

== ENCOUNTER 2025-01-22 11:43 | Outpatient (CLI) | payer BC, SELFPAY ==
--- OUTSIDE RECORDS SUMMARY | 2023-11-12 10:30 | XMS_ITS ---
Author Organization [facility] Address [address] [place] [id number] Care Team Providers Care Skirt Maker Name Role Phone Ibeth Collado Primary Care Provider Lauren Garcia Unavailable [phone] Duane Munroe Unavailable [phone] Allergies No Known Allergies Results Component Value [...] Duration) Notes Start Date End Date Status Meriw[place]-Linyah 0.25-35 MG-MCG TAKE ONE TABL ET BY [...] [address] [place] [id number] 11/12/2023 Duane Munroe Generalized abdomina l pain [...] * Treva CODYDOB: 1 (24 yo F)Acc No.[id number]:11/12/2023 Progress Notes Patient: Treva KWAN Provider: Jennifer Munroe M.D. :2000 A ge:23 Y S ex:Female Date:11/12/2023 Address:[address] [place] [address] , [place], [id number] Pcp:Ibeth Collado Subjective: * Chief Complaints: * [...] needed Orally Once a day , Taking Meriwether-Linyah 0.25-35 MG-MCG Tablet TAKE ONE TABLET BY [...] PM > ?[facility] 9:54:51 AM > faxed order to Kristen Rishi at * Procedure Codes: 3 6416 CAPILLARY BLOOD DRAW, 84034 CBC WITH AUTO DIFF * Follow Up: v ia phone to report progress * Images: Billing Information: * Visit Code: 74542 Office Visit, Est Pt., Level 3. * Procedure Codes: 61485 CAPILLARY BLOOD DRAW. 98498 CBC WITH AUTO DIFF. * Electronic signature of Vida Munroe MD on 01/23/2025 at 11:47 AM EDT Sign off status: Pending * Provider: Jennifer Munroe M.D. Date: 0 11/12/2023 Generated for Mishai anatoliy/Alan/eTransmitting on: 1 11:47 AM EDT History and Physical Notes * [...]
--- OUTSIDE RECORDS SUMMARY | 2025-01-23 11:47 | XMS_ITS | Patient Health Record ---
Author Organization [facility] Address [address] [place] [id number] Care Team Providers Care Senior Lead Developer Name Role Phone Ibeth Collado Primary Care Provider [phone] Lauren Garcia [phone] Allergies No Known Allergies Medications Medication SIG (Take, Route, Frequency, Duration) Notes Start Date End Date Status [place]-Linyah 0.25-35 MG-MCG TAKE ONE TABL ET BY MOUTH EVERY DAY; Duration: 28 day(s) Active Lactulose 10 GM/15ML 15 ml as needed Ora lly Once a day 06/07/2023 Active Immunizations Vaccine Route Administration Date Status Comme nts xGardasil IM Intramuscular 11/13/2011 Administered Varivax IM Intramuscular 11/18/2011 Administered Varivax Unknown 09/14/2001 Administered tuberculin (ppd) ID Intradermal 10/30/2019 Administered Tetanus Tdap-Adacel (over 7yrs) IM Intramuscular 11/13/2011 Administered Tetanus Tdap-Adacel (over 7yrs) IM Intramuscular 07/31/2022 Administered Tetanus Dtap-Daptacel (under 7yrs) IM Intramuscular 08/04/2005 Administered ppd ID Intradermal 11/10/2019 Administered MMR SC Subcutaneous 08/04/2005 Administered Menactra IM Intramuscular 11/13/2011 Administered Menactra IM Intramuscular 11/16/2017 Administered IPV Unknown 09/14/2001 Administered IPV IM Intramuscular 08/04/2005 Administered Hep A- Pediatric IM Intramuscular 11/16/2017 Administered Fluzone PF Quad (6-35 months) Unknown 02/13/2021 Administered Fluzone PF Quad (6-35 months) Unknown 02/03/2023 Administered COVID 19 Pfizer Unknown 08/13/2021 Administered Problems Problem Type SNOMED Code ICD Code Onset Dates Problem Status W/U Status Risk Notes Problem Seasonal allergic rhinitis (399825724) Seasonal allergic rhinitis (477.9) Active confirmed Problem History and physical examination, sports participation (procedure) (732275343) Routine sports physical exam (Z02.5) Active confirmed Problem Hypoglycemia (226928713) Hypoglycemia (E16.2) Active confirmed Problem Constipation (29622215) Constipation, unspecified constipation type (K59.00) Active confirmed Problem Viral conjunctivitis (80010179) Acute viral conjunctivitis of left eye (B30.9) Active confirmed Plan Of Treatment Pending Test Test Name Order Date colonoscopy 11/12/2023 Insurance Providers Payer Name Payer Address Payer Phone Subscriber Number Group Number Insured Name Patient Relationship to Insured Coverage Start Date Coverage End Date [facility] [address] [address] [place] [address] [id number] Vivi Anand Child - Insured has Financial Responsibility [employer] [address] [place] [address] [id number] Vivi Anand Child - Insured has Financial Responsibility Medical (General) History Surgical History Surgery Date(Month/Year) Tonsilectomy, Adenoidectomy 09/2009 Hospitalization History Reason Date(Month/Year)
== END 2025-01-22 23:59 | disposition home or self-care (01) ==
LOC: LAB.DROPOF 01-23 11:43
PROVIDERS: PCP Obstetrics & Gynecology; Visit Provider Obstetrics & Gynecology
DX: O23.40 Unspecified infection of urinary tract in pregnancy, unspecified trimester (principal); N39.0 Urinary tract infection, site not specified; Z3A.00 Weeks of gestation of pregnancy not specified
CPT/HCPCS: 87086

== ENCOUNTER 2025-01-30 16:24 | Outpatient (CLI) | payer BC, SELFPAY ==
--- OUTSIDE RECORDS SUMMARY | 2025-01-30 16:28 | XMS_ITS | Patient Health Record ---
Author Organization [facility] Address [address] [place] [id number] Care Team Providers Care Drier Tender Name Role Phone Ibeth Collado Primary Care Provider Lauren Garcia [phone] Allergies No Known Allergies Medications Medication SIG (Take, Route, Frequency, Duration) Notes Start Date End Date Status [place]-Linyah 0.25-35 MG-MCG TAKE ONE TABL ET BY [...] Status Risk Notes Problem Seasonal allergic rhinitis (983733238) Seasonal allergic rhinitis (477.9) Active confirmed Problem History and physical examination, sports participation (procedure) (221021611) Routine sports physical exam (Z02.5) Active confirmed Problem Hypoglycemia (403512728) Hypoglycemia (E16.2) Active confirmed Problem Constipation (82557336) Constipation, unspecified constipation type (K59.00) Active confirmed Problem Viral conjunctivitis (20908751) Acute viral conjunctivitis of left eye (B30.9) Active confirmed Plan Of Treatment Pending Test Test Name Order Date colonoscopy 11/12/2023 Insurance Providers Payer Name Payer Address Payer Phone Subscriber Number Group Number Insured Name Patient Relationship to Insured Coverage Start Date Coverage End Date [facility] [address] [address] [place] [address] [id number] Vivi Anand Child - Insured has Financial Responsibility [employer] [address] [place] [address] [id number] B [id number] Vivi Anand Child - Insured has Financial Responsibility Medical (General) History Surgical History Surgery Date(Month/Year) Tonsilectomy, Adenoidectomy 09/2009 Hospitalization History Reason Date(Month/Year)
[2025-01-30 17:41] LABS: Hematocrit 35.6 % (37.0-47.0); Hemoglobin 12.3 g/dL (12.2-16.2); Immature Granulocytes % 0.4 %; Mean Corpuscular HGB Conc 34.6 g/dL (31.8-35.4); Mean Corpuscular Hemoglobin 30.4 pg (27.0-31.2); Mean Corpuscular Volume 88.1 fl (81-99); Nucleated Red Blood Cells % 0 %; Platelet Count 271 K/mm3 (142-424); Red Blood Count 4.04 M/mm3 (4.20-5.40); Red Cell Distribution Width-SD 39.0 fL; White Blood Count 13.8 K/mm3 (4.8-10.8)
[2025-01-30 17:55] LABS: Glucose 1 Hour 119 mg/dL (74-100)
[2025-01-31 15:45] LABS: RPR W/RFX Titers Nonreactive (Nonreactive)
== END 2025-01-30 23:59 | disposition home or self-care (01) ==
LOC: LAB 16:25
PROVIDERS: PCP Family Medicine; Visit Provider Obstetrics & Gynecology
DX: O23.40 Unspecified infection of urinary tract in pregnancy, unspecified trimester (principal); O09.899 Supervision of other high risk pregnancies, unspecified trimester; O09.299 Supervision of pregnancy with other poor reproductive or obstetric history, unspecified trimester; Z28.39 Other underimmunization status; Z3A.00 Weeks of gestation of pregnancy not specified
CPT/HCPCS: 36415; 82947; 85025; 86592

== ENCOUNTER 2025-02-21 14:51 | Outpatient (CLI) | payer BC, SELFPAY ==
--- NOTE | 2025-02-21 15:15 | US_ITS ---
PROCEDURE: US OB FOLLOW UP CLINICAL INDICATION: 28 wk growth/position, placental position COMPARISON: US US OB /MATERNAL DETAIL from 12/27/2024 FINDINGS: Transabdominal sonographic images of the pelvis were obtained. The following parameters are obtained: From her established due date she is 28weeks 0 days Viable fetus in the cephalic presentation with a low lying posterior placenta grade 1. The posterior placenta is 2.79 cm away from the internal cervical os. The cervix measures 3.74 cm transvaginally. heart rate: 134bpm bpm. BPD: 28weeks 4days, 54 percentile HC: 27weeks 5days, 11 percentile AC: 27weeks, 0 days 13 percentile FL: 26weeks 6days, 6 percentile HC/AC: 1.13 FL/BPD: 0.7 FL/AC: 0.22 Growth percentile: 10 Amniotic fluid: MVP 5.10 cm No obvious anomalies evident. profile seen, stomach, bladder, kidneys, three-vessel cord, four chamber heart appear normal. IMPRESSION: 1. Viable fetus in the cephalic presentation with a posterior low lying placenta grade 1. The placenta is 2.5-2.8 cm away from the internal cervical os. 2. The fluid is within normal limits with an MVP 5.10 cm. 3. There has been good interval growth with the fetus currently 10th percentile. 4. Limited anatomical scan appears normal. 5. Suggest follow-up exam at 36 weeks to confirm the lack of low lying placenta. Dictated by: Sukhwinder Osei MD 02/21/2025 17:07 Sukhwinder Osei MD in [place] 02/21/2025 17:08
== END 2025-02-21 23:59 | disposition home or self-care (01) ==
LOC: RAD 14:51
PROVIDERS: PCP Family Medicine; Visit Provider Obstetrics & Gynecology
DX: O44.43 Low lying placenta NOS or without hemorrhage, third trimester (principal); O09.893 Supervision of other high risk pregnancies, third trimester; O09.293 Supervision of pregnancy with other poor reproductive or obstetric history, third trimester; Z28.39 Other underimmunization status; Z3A.28 28 weeks gestation of pregnancy
CPT/HCPCS: 76816; 76817

== ENCOUNTER 2025-04-09 16:06 | Outpatient (CLI) | payer BC, SELFPAY ==
--- OUTSIDE RECORDS SUMMARY | 2023-11-12 09:30 | XMS_ITS ---
Author Organization [facility] Address [address] [place] [id number] Care Team Providers Care Pharmacy Salesperson Name Role Phone Ibeth Collado Primary Care Provider Lauren Garcia Unavailable [phone] Duane Munroe Unavailable [phone] Allergies No Known Allergies Results Component Value Reference Range Notes CBC Fingerstick (in house) Reviewed date:11/13/2023 04:37:41 PM Interpretation: Performing Lab: Notes/Report: wbc 6.0 3.5 - 10 lym 36.3% 15 - 50 mid 7.3% 2 - 15 gran 56.4% 35 - 80 rbc 4.80 3.5 - 5.5 hgb 14.0 11.5 - 16.5 hct 42.9 35 - 55 mcv 89.2 75 - 100 mch 29.2 25 - 35 mchc 32.7 31 - 38 plat 186 100 - 400 REASON FOR VISIT stomach issues Medications Medication SIG (Take, Route, Frequency, Duration) Notes Start Date End Date Status Putnam-Linyah 0.25-35 MG-MCG TAKE ONE TABL ET BY MOUTH EVERY DAY; Duration: 28 day(s) Active Lactulose 10 GM/15ML 15 ml as needed Ora lly Once a day 06/07/2023 Active Vital Signs Weight 131.6 lbs 11/12/2023 Blood pressure systolic 122 mm Hg 11/12/19 24 Blood pressure diastolic 80 mm Hg 024 Heart Rate 90 /min 11/12/2023 Height 63.75 in 11/12/2023 BMI 22.76 kg/m2 11/12/2023 Encounters Encounter Location Date Provider Diagnosis [facility] [address] [place] [id number] 11/12/2023 Duane Munroe Generalized abdomina l pain R10.84 and BRBPR (bright red blood per rectum) K62.5 Assessments Encounter Date Diagnosis (ICD Code) Assessment Notes Treatment Notes Treatment Clinical Notes Section Notes 11/12/2023 Generalized abdominal pain (ICD-10 - R10.84) 11/12/2023 BRBPR (bright red blood per rectum) (ICD-10 - K62.5) Plan Of Treatment Pending Test Test Name Order Date colonoscopy 11/12/2023 Next Appt Details Follow Up: via phone to repo rt progress, Reason: Progress Notes * Treva CODYDOB: 1 (24 yo F)Acc No.[id number]:11/12/2023 Progress Notes Patient: Treva KWAN Provider: Jennifer Munroe M.D. :2000 A ge:23 Y S ex:Female Date:11/12/2023 Address:[address] [place] [address] , [place], [id number] Pcp:Ibeth Collado Subjective: * Chief Complaints: * 1 . Stomach issues. * HPI: G astroenterology: 23 year old female presents with c/o Blood in Stool P t complains of blood in stool for about 9 days. States that even if she does not have a bm there is blood in toilet. Pt states it is a lot of blood and she thought it was her mentral cycle but the blood comes from her rectum. * ROS: D ERMATOLOGY: no R rashard. n o H song. G ASTROENTEROLOGY: no N ausea. n o [...] to secondhand smoke. * Medications: T aking Lactulose 10 GM/15ML Solution 15 ml as needed Orally Once a day , Taking Putnam-Linyah 0.25-35 MG-MCG Tablet TAKE ONE TABLET BY MOUTH EVERY DAY , Discontinued Trulance 3 MG Tablet 1 tab(s) orally once a day , Medication List reviewed and reconciled with the patient * Allergies: N .K.D.A. Objective: * Vitals: W t:131.6, Temp:97.9, BP:122/80, HR:90, Nurse:jon, Ht: 63.75, BMI:22.76. * Examination: G astroenterology: General Appearance: p leasant, NAD. O ral cavity: n ormal. S clera: a nicteric. H eart sounds: r egular, normal S1 S2. L ungs: c lear, no rales or wheezes. A bdomen: B S present, soft, nontender, no guarding or rigidity, no masses felt. R ectal exam: anus WNL, no external hemorrhoids. Assessment: * Assessment: 1. G eneralized abdominal pain - R10.84 (Primary) 2 . B RBPR (bright red blood per rectum) - K62.5 Plan: * Treatment: 2.?BRBPR (bright red blood per rectum)?LAB: CBC Fingerstick (in house) (Collection Date & Time - 11/12/2023)* Value Reference Range w bc 6.0 3.5 - 10 * l ym 36.3% 15 - 50 * m id 7.3% 2 - 15 * g ran 56.4% 35 - 80 * r bc 4.80 3.5 - 5.5 * h gb 14.0 11.5 - 16.5 * h ct 42.9 35 - 55 * m cv 89.2 75 - 100 * m ch 29.2 25 - 35 * m chc 32.7 31 - 38 * p lat 186 100 - 400 * Anny Blackwell 11/12/2023 2:28:45 PM > , Provider reviewed results while patient in office.Duane Munroe 11/13/2023 4:37:38 PM > ?Im[facility]: [facility] 11/15/2023 9:54:51 AM > faxed order to Kristen Rishi at * Procedure Codes: 3 6416 CAPILLARY BLOOD DRAW, 06831 CBC WITH AUTO DIFF * Follow Up: v ia phone to report progress * Images: Billing Information: * Visit Code: 19417 Office Visit, Est Pt., Level 3. * Procedure Codes: 34249 CAPILLARY BLOOD DRAW. 31952 CBC WITH AUTO DIFF. * Electronic signature of Vida Munroe MD on 04/10/2025 at 12:13 PM EST Sign off status: Pending * Provider: Jennifer Munroe M.D. Date: 0 11/12/2023 Generated for Mishai anatoliy/Alan/eTransmitting on: 1 12:13 PM EST History and Physical Notes * HPI (History of Present Illness) Category Sub-Category Detail Notes Category Not es Gastroenterology Blood in Stool Pt complains of blood in stool for about 9 days. States that even if she does not have a bm there is blood in toilet. Pt states it is a lot of blood and she thought it was her mentral cycle but the blood comes from her rectum Examination Category Sub-Category Detail Notes Category Not es Gastroenterology Oral cavity: normal Sclera: anicteric Heart sounds: regular, normal S1 S 2 Lungs: clear, no rales or w heezes Abdomen: BS present, soft, no ntender, no guarding or rigidity, no masses felt Rectal exam: anus WNL, no externa l hemorrhoids General Appearance: pleasant, NAD
--- OUTSIDE RECORDS SUMMARY | 2025-02-28 14:20 | XMS_ITS | Encounter Summary ---
Author Organization [facility] Address [address] [place] [address] Care Team Providers Care Files Supervisor Name Role Phone Provider, No Known Primary Care Provider Unavail able Reason for Referral * Diagnostic Imaging (Routine) - Closed Specialty Diagnoses / Procedures Referred By Contac t Referred To Contact Radiology Diagnoses Abnormal ultrasound Low-lying placenta without hemorrhage, third trimester SGA (small for gestational age), , affecting care of mother, antepartum, third trimester, other fetus Procedures US [facility] Tanya Abreu DO [address] [place] [address] Phone: tel: fax: [facility] [address] [place] [address] Phone: tel: Referral ID Status Reason Start Date Expiration Date Visits Re quested Visits Authorized [id number] Closed 02/23/2025 05/25/2026 1 1 Reason for Visit * Diagnostic Imaging (Routine) - Closed Specialty Diagnoses / Procedures Referred By Contac t Referred To Contact Radiology Diagnoses Abnormal ultrasound Low-lying placenta without hemorrhage, third trimester SGA (small for gestational age), , affecting care of mother, antepartum, third trimester, other fetus Procedures US [facility] Tanya Abreu DO [address] [place] [address] Phone: tel: fax: [facility] [address] [place] [address] Phone: tel: Referral ID Status Reason Start Date Expiration Date Visits Re quested Visits Authorized [id number] Closed 02/23/2025 05/25/2026 1 1 Encounter Details Date Type Department Care Team (Latest Contact Info) Description 02/28/2025 2:20 PM EST - 02/28/2025 11:59 PM EST Hospital Encounter [facility] [address] [place] [address] Tanya Abreu, [address] [address] Abnormal ultrasound; Low-lying placenta without hemorrhage, third trimester; SGA (small for gestational age), , affecting care of mother, antepartum, third trimester, other fetus Discharge Disposition: Home or Self Care Social History Tobacco Use Types Packs/Day Years Used Date Smoking Tobacco: Never Smokeless Tobacco: Never Alcohol Use Standard Drinks/Week Comments Not Currently 0 (1 standard drink = 0.6 oz pur e alcohol) Estimated Date of Delivery Comme nts Yes 05/16/2025 Based on Ultraso und Sex and Gender Information Value Date Recorded Sex Assigned at Not on file Legal Sex Female 11:08 AM EST Gender Identity Not on file Sexual Orientation Not on file documented as of this encounter Medications at Time of Discharge famotidine (PEPCID) 20 MG tablet Take 1 tablet by mouth Every 12 (Twelve) Hours. 12/01/2024 vitamin (, CLASSIC, vitamin) tablet Take by mouth Daily. promethazine (PHENERGAN) 12.5 MG tablet Take 1 tablet by mouth Every 6 (Six) Hours As Needed for Nausea or Vomiting. 12/03/2024 documented as of this encounter Plan of Treatment Not on file documented as of this encounter Procedures Procedure Name Priority Date/Time Associated Diagnosis Comments [facility] Routine 02/28/2025 3:21 PM EST Abnormal ultrasound Low-lying placenta without hemorrhage, third trimester SGA (small for gestational age), , affecting care of mother, antepartum, third trimester, other fetus documented in this encounter Results * [facility] (02/28/2025 3:21 PM EST) Anatomical Region Laterality Modality Ultrasound 02/28/2025 2:54 PM EST Narrative 02/28/2025 3:25 PM EST PAT NAME: DC CODY MED REC#: [id number] DA: [id number] PAT GEND: F PAT TYPE: O EXAM NELY: [id number] REF PHYS TANYA ABREU Comparison Studies There are no relevant prior studies to which this study is being compared Patient Status Outpatient Indication ======== Concern for IUGR, Low lying placenta Maternal Assessment Height 160 cm Height (ft) 5 ft Height (in) 3 in Weight 72 kg Weight (lb) 159 lb BMI 28.13 kg/m Method ======= Transabdominal ultrasound examination. View: Adequate view ========= De La Torre . Number of fetuses: 1 Dating ====== Method of dating: based on stated LILIBETH GA by prior assessment 29 w + 0 d LILIBETH by prior assessment: 05/16/2025 Ultrasound examination on: 02/28/2025 GA by U/S based upon: AC, BPD, Femur, HC GA by U/S 28 w + 6 d LILIBETH by U/S: 05/17/2025 Assigned: based on stated LILIBETH, selected on 02/28/2025 Assigned GA 29 w + 0 d Assigned LILIBETH: 05/16/2025 length 280 d Biometry Standard BPD 73.3 mm 29w 3d 51% Hadlock OFD 93.8 mm 30w 2d 81% Agatha HC 267.9 mm 29w 1d 22% Hadlock Cerebellum tr 33.8 mm 28w 4d 46% Hill AC 234.8 mm 27w 6d 13% Hadlock Femur 54.2 mm 28w 5d 26% Hadlock Humerus 48.3 mm 28w 3d 24% Agatha HC / AC 1.14 EFW 1,212 g 28w 0d 18% Hadlock EFW (lb) 2 lb EFW (oz) 11 oz EFW by: Hadlock ([id number]) Extended Tibia 47.2 mm 28w 5d 37% Agatha Fibula 45.9 mm 28w 3d 38% Agatha Foot 50.4 mm 1% Chitty Radius 41.2 mm 28w 4d 47% Agatha Ulna 45.8 mm 29w 2d 31% Agatha Cav. septi pel. tr 6.2 mm Nuclear Medicine Tech 6.5 mm CM 6.4 mm 38% Nicolaides Nasal bone 7.0 mm Head / Face / Neck Cephalic index 0.78 40% Nicolaides Extremities / Bony Struc FL / BPD 0.74 FL / HC 0.20 FL / AC 0.23 Other Structures FHR 129 bpm General Evaluation Cardiac activity present. FHR 129 bpm. movements present. Presentation cephalic. Placenta Placental site: posterior. Umbilical cord Cord vessels: 3 vessel cord. Insertion site: placental insertion: normal. Amniotic fluid Amount of AF: normal. MVP 4.6 cm. CARLY 16.3 cm. Q1 4.6 cm, Q2 4.4 cm, Q3 3.8 cm, Q4 3.6 cm. Anatomy Cranium: Appears normal Midline falx: Appears normal Cavum septi pellucidi: Appears normal Cerebellum: Appears normal Cisterna magna: Appears normal Head / Neck Rt lateral ventricle: Appears normal Lt lateral ventricle: Appears normal Rt choroid plexus: Appears normal Lt choroid plexus: Appears normal Vermis: Appears normal Neck: Appears normal Nuchal fold: Appears normal Lips: Appear normal Profile: Appears normal Nose: Appears normal Face Nose: Nasal bone present Palate: Appears normal Orbits: Appears normal Lens: Normal 4-chamber view: Appears normal RVOT view: Appears normal LVOT view: Appears normal Heart / Thorax Aortic arch view: Appears normal Ductal arch view: Appears normal SVC: normal IVC: normal 3-vessel view: Appears normal 3-askwxi-ozfotps view: Appears normal Rt lung: Appears normal Lt lung: normal Diaphragm: Appears normal Diaphragm: Intact Cord insertion: Appears normal Stomach: Appears normal Bladder: Appears normal Abdomen Rt kidney: normal Lt kidney: normal Liver: normal Small bowel: normal Large bowel: normal Cervical spine: Appears normal Thoracic spine: Appears normal Lumbar spine: Appears normal Sacral spine: Appears normal Arms: Appears normal Legs: Appears normal Rt upper arm: Appears normal Rt forearm: Appears normal Rt hand: Appears normal Lt upper arm: Appears normal Lt forearm: Appears normal Lt hand: Appears normal Rt upper leg: Appears normal Rt lower leg: Appears normal Rt foot: Appears normal Lt upper leg: Appears normal Lt lower leg: Appears normal Lt foot: Appears normal Wants to know gender: yes Doppler Arterial Umbilical A PI 1.31 94% Shannon Umbilical A RI 0.76 93% Shannon Umbilical A PS 46.62 cm/s 61% Ebbing Umbilical A ED 12.17 cm/s Umbilical A TAmax 27.58 cm/s 38% Ebbing Umbilical A MD 11.93 cm/s Umbilical A S / D 4.10 93% Shannon Umbilical A HR 141 bpm Maternal Structures Uterus / Cervix Cervix: Visualized Approach: Transabdominal Cervical length 39.3 mm Ovaries / Tubes / Adnexa Rt ovary: Visualized Lt ovary: Visualized Consultation / Office Visit Office note to follow Impression ========= Size consistent with dates but with borderline AC. No anomalies were identified. Amniotic fluid volume is normal. Umbilical artery S/D ratio is borderline elevated. Posterior placenta is nearly 5 cm from internal os. Patient counseled re movement. Recommendation We recommend evaluation in 4 weeks. Follow up appointment scheduled here in 4 weeks. Coding ====== Description: 61352-25 Detailed Player Development Executive: Marina Erickson RDMS Physician: James Bertrand MD, FACOG Electronically signed by: James Bertrand MD, FACOG at: 15:25 Procedure Note Kevin Bertrand MD - 02/28/2025 PAT NAME: DC CODY MED REC#: [id number] DA: 2000 PAT GEND: F PAT TYPE: O EXAM NELY: [id number] REF PHYS TANYA ABREU Comparison Studies There are no relevant prior studies to which this study is beingcompared Patient Status Outpatient Indication ======== Concern for IUGR, Low lying placenta Maternal Assessment [id number] cm Height (ft)5 ft Height (in)3 in Gpdggl64 kg Weight (lb)159 lb BMI28.13 kg/m Method ======= Transabdominal ultrasound examination. View: Adequate view ========= De La Torre . Number of fetuses: 1 Dating ====== Method of dating:based on stated LILIBETH GA by prior [id number] w + 0 d LILIBETH by prior assessment:05/16/2025 Ultrasound examination on:02/28/2025 GA by U/S based upon:AC, BPD, Femur, HC GA by U/S28 w + 6 d LILIBETH by U/S:05/17/2025 Assigned:based on stated LILIBETH, selected on 02/28/2025 Assigned GA29 w + 0 d Assigned LILIBETH:05/16/2025 [id number] d Biometry Standard BPD73.3 mm 29w 3d 51% Hadlock OFD93.8 mm 30w 2d 81% Agatha HC267.9 mm 29w 1d 22% Hadlock Cerebellum tr33.8 mm 28w 4d 46% Hill AC234.8 mm 27w 6d 13% Hadlock Femur54.2 mm 28w 5d 26% Hadlock Vftvhal35.3 mm 28w 3d 24% Agatha HC / AC1.14 EFW1,212 g 28w 0d 18% Hadlock EFW (lb)2 lb EFW (oz)11 oz EFW by:Hadlock ([id number]) Extended Tibia47.2 mm 28w 5d 37% Agatha Zvgyuk83.9 mm 28w 3d 38% Agatha Foot50.4 mm 1% Chitty Aruvvh12.2 mm 28w 4d 47% Agatha Ulna45.8 mm 29w 2d 31% Agatha Cav. septi pel. tr6.2 mm Vp6.5 mm CM6.4 mm 38% Nicolaides Nasal bone7.0 mm Head / Face / Neck Cephalic index0.78 40% Nicolaides Extremities / Bony Struc FL / BPD0.74 FL / HC0.20 FL / AC0.23 Other Structures [id number] bpm General Evaluation Cardiac activity present. FHR 129 bpm. movements present. Presentation cephalic. Placenta Placental site: posterior. Umbilical cord Cord vessels: 3 vessel cord. Insertion site: placentalinsertion: normal. Amniotic fluid Amount of AF: normal. MVP 4.6 cm. CARLY 16.3 cm. Q1 4.6 cm,Q2 4.4 cm, Q3 3.8 cm, Q4 3.6 cm. Anatomy Cranium:Appears normal Midline falx:Appears normal Cavum septi pellucidi:Appears normal Cerebellum:Appears normal Cisterna magna:Appears normal Head / Neck Rt lateral ventricle:Appears normal Lt lateral ventricle:Appears normal Rt choroid plexus:Appears normal Lt choroid plexus:Appears normal Vermis:Appears normal Neck:Appears normal Nuchal fold:Appears normal Lips:Appear normal Profile:Appears normal Nose:Appears normal Face Nose:Nasal bone present Palate:Appears normal Orbits:Appears normal Lens:Normal 4-chamber view:Appears normal RVOT view:Appears normal LVOT view:Appears normal Heart / Thorax Aortic arch view:Appears normal Ductal arch view:Appears normal SVC:normal IVC:normal 3-vessel view:Appears normal 0-ptvgjq-pcyrlsm view:Appears normal Rt lung:Appears normal Lt lung:normal Diaphragm:Appears normal Diaphragm:Intact Cord insertion:Appears normal Stomach:Appears normal Bladder:Appears normal Abdomen Rt kidney:normal Lt kidney:normal Liver:normal Small bowel:normal Large bowel:normal Cervical spine:Appears normal Thoracic spine:Appears normal Lumbar spine:Appears normal Sacral spine:Appears normal Arms:Appears normal Legs:Appears normal Rt upper arm:Appears normal Rt forearm:Appears normal Rt hand:Appears normal Lt upper arm:Appears normal Lt forearm:Appears normal Lt hand:Appears normal Rt upper leg:Appears normal Rt lower leg:Appears normal Rt foot:Appears normal Lt upper leg:Appears normal Lt lower leg:Appears normal Lt foot:Appears normal Wants to know gender:yes Doppler Arterial Umbilical A PI1.31 94% Shannon Umbilical A RI0.76 93% Shannon Umbilical A PS46.62 cm/s 61% Ebbing Umbilical A ED12.17 cm/s Umbilical A TAmax27.58 cm/s 38% Ebbing Umbilical A MD11.93 cm/s Umbilical A S / D4.10 93% Shannon Umbilical A HR141 bpm Maternal Structures Uterus / Cervix Cervix:Visualized Approach:Transabdominal Cervical .3 mm Ovaries / Tubes / Adnexa Rt ovary:Visualized Lt ovary:Visualized Consultation / Office Visit Office note to follow Impression ========= Size consistent with dates but with borderline AC. No anomalies were identified. Amniotic fluid volume is normal. Umbilical artery S/D ratio is borderline elevated. Posterior placenta is nearly 5 cm from internal os. Patient counseled re movement. Recommendation We recommend evaluation in 4 weeks. Follow up appointment scheduled here in 4 weeks. Coding ====== Description:86337-24 Detailed Player Development Executive: Marina Erickson RDMS Physician: James Bertrand MD, FACOG Electronically signed by: James Bertrand MD, FACOG at: 15:25 us Tanya Abreu DO IMG US ORDERABLES Final Result documented in this encounter Visit Diagnoses Diagnosis Abnormal ultrasound Low-lying placenta without hemorrhage, third trimester SGA (small for gestational age), , affecting care of mother, antepartum, third trimester, other fetus documented in this encounter Care Teams Files Supervisor Relationship Specialty Start Date End Date Provider, [place] [address] PCP - General 02/23/25 03/20/25 documented as of this encounter
--- OUTSIDE RECORDS SUMMARY | 2025-02-28 14:30 | XMS_ITS | Encounter Summary ---
Author Organization [facility] Address [address] [place] [address] Care Team Providers Care Molder Offbearer Name Role Phone Provider, No Known Primary Care Provider Unavail able Reason for Referral * Diagnostic Imaging (Routine) - Closed Specialty Diagnoses / Procedures Referred By Contac t Referred To Contact Radiology Diagnoses Uterine size-date discrepancy in third trimester Low-lying placenta without hemorrhage, third trimester 29 weeks gestation of Procedures [facility] Kevin Bertrand MD [address] [address] Phone: tel: fax: Referral ID Status Reason Start Date Expiration Date Visits Re quested Visits Authorized [id number] Closed 02/28/2025 05/30/2026 1 1 Reason for Visit * Reason Comments Abn u/s, growth 10%, low lying deni centa Encounter Details Date Type Department Care Team (Late st Contact Info) Description 02/28/2025 2:30 PM EST Office Visit [facility] [address] [phone] Kevin Bertrand MD [address] [id number] Uterine size-date discrepancy in third trimester (Primary Dx); Low-lying placenta without hemorrhage, third trimester; 29 weeks gestation of Social History Tobacco Use Types Packs/Day Years Used Date Smoking Tobacco: Never Smokeless Tobacco: Never Tobacco Cessation:Counseling Given: Not Answered Alcohol Use Standard Drinks/Week Comments Not Currently 0 (1 standard drink = 0.6 oz pur e alcohol) Estimated Date of Delivery Comme nts Yes 05/16/2025 Based on Ultraso und Sex and Gender Information Value Date Recorded Sex Assigned at Not on file Legal Sex Female 11:08 AM EST Gender Identity Not on file Sexual Orientation Not on file documented as of this encounter Last Filed Vital Signs Vital Sign Reading Time Taken Comments Blood Pressure 131/63 02/28/2025 2:48 PM EST Pulse - - Temperature - - Respiratory Rate - - Oxygen Saturation - - Inhaled Oxygen Concentration - - Weight 72.7 kg (160 lb 3.2 oz) 02/28/2025 2:48 P M EST Height 160 cm (5' 3 ) 02/28/2025 2:52 PM EST Body Mass Index 28.38 02/28/2025 2:48 PM EST documented in this encounter Progress Notes * Kevin Bertrand MD - 02/28/2025 3:19 PM ESTAssociated Problem(s): Uterine size-date discrepancy in third trimester (Resolved 03/28/2025) Patient referred for fetus size less than dates on ultrasound performed in her primary OB office. Additionally low-lying placenta center was seen. Patient reports no complications since her last visit and notes good movement. Ultrasound today demonstrates a fetus that is overall normal growth. Abdominal circumference is at the 11th to the 14th percentile. Amniotic fluid volume is normal. Umbilical artery Dopplers are at upper limits of normal to minimally elevated for this gestational age. Cervical length appears normalposterior placenta was nearly 5 cm from the internal os. Patient's growth is adequate today. As the abdominal circumference is borderline being small we will rescan the patient again in 4 weeks time to assess growth. Additionally the significance of minimally elevated Dopplers in the face of normal growth is unclear but it is another reason to rescan the patient again in 4 weeks time. We have recommended increased rest and nutrition to the patient. Posterior placenta is far enough away from the internal os and not be clinically significant this point. I would suggest no alteration from normal obstetric care at this point. Patient was counseled extensively regarding movement will contact her provider immediately ifshe notices any decreased movement. * Candis Fernández RN - 02/28/2025 2:30 PM EST Denies vaginal bleeding, leaking fluid, and contractions. Endorses normal movement. NIPT low risk. Next OB follow-up appointment with Dr. Abreu on 03/07/25. * Kevin Bertrand MD - 02/28/2025 2:30 PM EST Images from the original note were not included. Documentation of the ultrasound findings, images, and interpretations will be available in the patient's Viewpoint report which is located in the imaging tab in chart review. Maternal/ Medicine Consult Note Name: Dc Cody : 2000 Referring Provider: Paulina Abreu DO Chief Complaint Abn u/s, growth 10%, low lying placenta Subjective History of Present Illness: Dc Cody is a 24 y.o. 29w0d who presents today for S<D LILIBETH: Estimated Date of Delivery: 05/16/25 ROS: As noted in HPI. History reviewed. No pertinent past medical history. Past Surgical History: Procedure Laterality Date COLONOSCOPY TONSILLECTOMY OB History 2 Para 0 Term 0 0 AB 1 Living 0 SAB 1 IAB 0 Ectopic 0 Molar 0 Multiple 0 Live Births 0 Objective Vital Signs BP 131/63 Ht 160 cm (63 ) Wt 72.7 kg (160 lb 3.2 oz) Estimated body mass index is 28.38 kg/m?? as calculated from the following: Height as of this encounter: 160 cm (63 ). Weight as of this encounter: 72.7 kg (160 lb 3.2 oz). Physical Exam Ultrasound Impression: See Viewpoint Assessment and Plan Dc Cody is a 24 y.o. 29w0d who presents today for S<D Diagnoses and all orders for this visit: 1. Uterine size-date discrepancy in third trimester (Primary) Assessment & Plan: Patient referred for fetus size less than dates on ultrasound performed in her primary OB office. Additionally low-lying placenta center was seen. Patient reports no complications since her last visit and notes good movement. Ultrasound today demonstrates a fetus that is overall normal growth. Abdominal circumference is at the 11th to the 14th percentile. Amniotic fluid volume is normal. Umbilical artery Dopplers are at upper limits of normal to minimally elevated for this gestational age. Cervical length appears normalposterior placenta was nearly 5 cm from the internal os. Patient's growth is adequate today. As the abdominal circumference is borderline being small we will rescan the patient again in 4 weeks time to assess growth. Additionally the significance of minimally elevated Dopplers in the face of normal growth is unclear but it is another reason to rescan the patient again in 4 weeks time. We have recommended increased rest and nutrition to the patient. Posterior placenta is far enough away from the internal os and not be clinically significant this point. I would suggest no alteration from normal obstetric care at this point. Patient was counseled extensively regarding movement will contact her provider immediately ifshe notices any decreased movement. Orders: - Count includes the [facility]; Future 2. Low-lying placenta without hemorrhage, third trimester - Count includes the [facility] [place]; Future 3. 29 weeks gestation of - Count includes the [facility] [place]; Future Follow Up Return in about 4 weeks (around 03/28/2025). I spent 20 minutes caring for the patient on the day of service. This included: obtaining or reviewing a separately obtained medical history, reviewing patient records, performing a medically appropriate exam and/or evaluation, counseling or educating the patient/family/caregiver, ordering medications, labs, and/or procedures and documenting such in the medical record. This does not include time spent on review and interpretation of other tests such as ultrasound or the performance of other procedures such as amniocentesis or CVS. Kevin Bertrand MD Maternal Medicine, [facility] [place] 02/28/2025 documented in this encounter Plan of Treatment Not on file documented as of this encounter Results * [facility] [place] (03/28/2025 3:00 PM EST) Anatomical Region Laterality Modality Ultrasound 03/28/2025 2:39 PM EST Narrative 03/28/2025 3:11 PM EST PAT NAME: DC CODY MED REC#: [id number] DA: 2000 PAT GEND: F PAT TYPE: O EXAM NELY: [id number] REF PHYS PAULINA ABREU Comparison Studies The findings of this study are compared to the prior ultrasound study dated 02/28/25 Patient Status Outpatient Indication ======== Concern for IUGR, Low lying placenta Maternal Assessment Height 160 cm Height (ft) 5 ft Height (in) 3 in Weight 77 kg Weight (lb) 170 lb BMI 30.08 kg/m Method ======= Transabdominal ultrasound examination. View: Good view ========= De La Torre . Number of fetuses: 1 Dating ====== GA by prior assessment 33 w + 0 d LILIBETH by prior assessment: 05/16/2025 Ultrasound examination on: 03/28/2025 GA by U/S based upon: AC, BPD, Femur, HC GA by U/S 33 w + 1 d LILIBETH by U/S: 05/15/2025 Method of dating: Restore dating from previous exam Previous dating: based on stated LILIBETH, selected on 02/28/2025 Agreed LILIBETH of previous datin05/16/2025 Assigned: based on stated LILIBETH, selected on 02/28/2025 Assigned GA 33 w + 0 d Assigned LILIBETH: 05/16/2025 length 280 d Biometry Standard BPD 83.6 mm 33w 5d 63% Hadlock OFD 108.1 mm 35w 5d 95% Agatha HC 307.6 mm 34w 2d 47% Hadlock Cerebellum tr 41.4 mm 32w 6d 26% Hill AC 281.7 mm 32w 1d 28% Hadlock Femur 63.0 mm 32w 4d 28% Hadlock Humerus 55.4 mm 32w 2d 40% Agatha HC / AC 1.09 EFW 2,022 g 32w 2d 31% Hadlock EFW (lb) 4 lb EFW (oz) 7 oz EFW by: Hadlock ([id number]) Extended Cav. septi pel. tr 6.5 mm Design Cell Engineer 4.6 mm CM 7.8 mm 64% Nicolaides Head / Face / Neck Cephalic index 0.77 22% Nicolaides Extremities / Bony Struc FL / BPD 0.75 FL / HC 0.20 FL / AC 0.22 Other Structures FHR 159 bpm General Evaluation Cardiac activity present. FHR 159 bpm. movements present. Presentation cephalic. Placenta Placental site: posterior. Amniotic fluid Amount of AF: normal. MVP 5.0 cm. CARLY 15.1 cm. Q1 4.5 cm, Q2 5.0 cm, Q3 2.2 cm, Q4 3.4 cm. Anatomy Cranium: Normal Cavum septi pellucidi: Normal Cerebellum: Normal Cisterna magna: Normal Head / Neck Rt lateral ventricle: Normal Lt lateral ventricle: Normal Lips: Normal Profile: Normal Nose: Normal 4-chamber view: Appears normal RVOT view: Normal LVOT view: Normal Heart / Thorax 3-vessel view: Normal 8-kvvnzb-ocoonyl view: normal Cord insertion: Normal Stomach: Appears normal Kidneys: Appears normal Bladder: Appears normal Gender: female Wants to know gender: yes Maternal Structures Uterus / Cervix Cervical length 36.1 mm Doppler Arterial Umbilical A PI 1.04 78% Shannon Umbilical A RI 0.68 83% Shannon Umbilical A PS 37.42 cm/s 7% Ebbing Umbilical A ED 12.38 cm/s Umbilical A TAmax 24.24 cm/s 7% Ebbing Umbilical A MD 12.01 cm/s Umbilical A S / D 3.09 75% Shannon Umbilical A HR 157 bpm Biophysical Profile 2: breathing movements 2: Gross body movements 2: tone 2: Amniotic fluid volume 11/17 Biophysical profile score Consultation / Office Visit Type: Consultation See Epic for full consult note. Impression Single, viable intrauterine at 33w0d in cephalic lie The placenta is posterior size is appropriate for the established LILIBETH (EFW 31%, AC 28%) The amniotic fluid volume is normal The visualized portions of the anatomy (see table) appear normal The BPP is reassuring (8/8) No abnormalities are appreciated within the limitations of ultrasound Recommendation Further ultrasounds/consultation at your discretion Coding ======= Description: 48207-06 Follow Up Ultrasound Description: 27604-06 BPP without NST Configuration Specialist: Jeanne Reynoso RDMS Physician: Levi Rojas MD Electronically signed by: Levi Rojas MD at: 15:11 Procedure Note Levi Rojas MD - 03/28/2025 PAT NAME: DC CODY MED REC#: [id number] DA: [id number] PAT GEND: F PAT TYPE: O EXAM NELY: [id number] REF PHYS PAULINA ABREU Comparison Studies The findings of this study are compared to the prior ultrasound studydated 02/28/25 Patient Status Outpatient Indication ======== Concern for IUGR, Low lying placenta Maternal Assessment Ehkskq708 cm Height (ft)5 ft Height (in)3 in Trycqw78 kg Weight (lb)170 lb BMI30.08 kg/m Method ======= Transabdominal ultrasound examination. View: Good view ========= De La Torre . Number of fetuses: 1 Dating ====== GA by prior [id number] w + 0 d LILIBETH by prior assessment:05/16/2025 Ultrasound examination on:03/28/2025 GA by U/S based upon:AC, BPD, Femur, HC GA by U/S33 w + 1 d LILIBETH by U/S:05/15/2025 Method of dating:Restore dating from previous exam Previous dating:based on stated LILIBETH, selected on 02/28/2025 Agreed LILIBETH of previous datin05/16/2025 Assigned:based on stated LILIBETH, selected on 02/28/2025 Assigned GA33 w + 0 d Assigned LILIBETH:05/16/2025 d Biometry Standard BPD83.6 mm 33w 5d 63% Hadlock CZK624.1 mm 35w 5d 95% Agatha HC307.6 mm 34w 2d 47% Hadlock Cerebellum tr41.4 mm 32w 6d 26% Hill AC281.7 mm 32w 1d 28% Hadlock Femur63.0 mm 32w 4d 28% Hadlock Wdoyquz32.4 mm 32w 2d 40% Agatha HC / AC1.09 EFW2,022 g 32w 2d 31% Hadlock EFW (lb)4 lb EFW (oz)7 oz EFW by:Hadlock ([id number]-FL) Extended Cav. septi pel. tr6.5 mm Vp4.6 mm CM7.8 mm 64% Nicolaides Head / Face / Neck Cephalic index0.77 22% Nicolaides Extremities / Bony Struc FL / BPD0.75 FL / HC0.20 FL / AC0.22 Other Structures GWX274 bpm General Evaluation Cardiac activity present. FHR 159 bpm. movements present. Presentation cephalic. Placenta Placental site: posterior. Amniotic fluid Amount of AF: normal. MVP 5.0 cm. CARLY 15.1 cm. Q1 4.5 cm,Q2 5.0 cm, Q3 2.2 cm, Q4 3.4 cm. Anatomy Cranium:Normal Cavum septi pellucidi:Normal Cerebellum:Normal Cisterna magna:Normal Head / Neck Rt lateral ventricle:Normal Lt lateral ventricle:Normal Lips:Normal Profile:Normal Nose:Normal 4-chamber view:Appears normal RVOT view:Normal LVOT view:Normal Heart / Thorax 3-vessel view:Normal 9-sjmvrj-ywgojuf view:normal Cord insertion:Normal Stomach:Appears normal Kidneys:Appears normal Bladder:Appears normal Gender:female Wants to know gender:yes Maternal Structures Uterus / Cervix Cervical whcsiv28.1 mm Doppler Arterial Umbilical A PI1.04 78% Shannon Umbilical A RI0.68 83% Shannon Umbilical A PS37.42 cm/s 7% Ebbing Umbilical A ED12.38 cm/s Umbilical A TAmax24.24 cm/s 7% Ebbing Umbilical A MD12.01 cm/s Umbilical A S / D3.09 75% Shannon Umbilical A HR157 bpm Biophysical Profile 2: breathing movements 2: Gross body movements 2: tone 2: Amniotic fluid volume 11/17 Biophysical profile score Consultation / Office Visit Type: Consultation See [facility] for full consult note. Impression Single, viable intrauterine at 33w0d in cephalic lie The placenta is posterior size is appropriate for the established LILIBETH (EFW 31%, AC 28%) The amniotic fluid volume is normal The visualized portions of the anatomy (see table) appear normal The BPP is reassuring (11/17) No abnormalities are appreciated within the limitations of ultrasound Recommendation Further ultrasounds/consultation at your discretion Coding ======= Description:32761-98 Follow Up Ultrasound Description:37106-09 BPP without NST Configuration Specialist: Jeanne Reynoso RDMS Physician: Levi Rojas MD Electronically signed by: Levi Rojas MD at: 15:11 us Kevin Bertrand MD IMG US ORDERABLES Final Re sult documented in this encounter Visit Diagnoses Diagnosis Uterine size-date discrepancy in third trimester- Primary Low-lying placenta without hemorrhage, third trimester 29 weeks gestation of Uterine size-date discrepancy in third trimester Low-lying placenta without hemorrhage, third trimester 29 weeks gestation of documented in this encounter Care Teams Molder Offbearer Relationship Specialty Start Date End Date Provider, [place] [address] PCP - General 02/23/25 03/20/25 documented as of this encounter
--- OUTSIDE RECORDS SUMMARY | 2025-03-28 14:36 | XMS_ITS | Encounter Summary ---
Author Organization [facility] Address [address] [place] [id number] Care Team Providers Care Leak Patcher Name Role Phone Duane Munroe MD Primary Care Provider [phone] Reason for Referral * Diagnostic Imaging (Routine) - Closed Specialty Diagnoses / Procedures Referred By Sheldon arce Referred To Contact Radiology Diagnoses Uterine size-date discrepancy in third trimester Low-lying placenta without hemorrhage, third trimester 29 weeks gestation of Procedures [facility] [place] Kevin Bertrand MD [address] [place] [address] Phone: tel: fax: Referral ID Status Reason Start Date Expiration Date Visits Re quested Visits Authorized [id number] Closed 02/28/2025 05/30/2026 1 1 Reason for Visit * Diagnostic Imaging (Routine) - Closed Specialty Diagnoses / Procedures Referred By Sheldon arce Referred To Contact Radiology Diagnoses Uterine size-date discrepancy in third trimester Low-lying placenta without hemorrhage, third trimester 29 weeks gestation of Procedures [facility] [place] Kevin Bertrand MD [address] [place] [address] Phone: tel: fax: Referral ID Status Reason Start Date Expiration Date Visits Re quested Visits Authorized [id number] Closed 02/28/2025 05/30/2026 1 1 Encounter Details Date Type Department Care Team (Late st Contact Info) Description 03/28/2025 2:36 PM EST - 03/28/2025 11:59 PM EST Hospital Encounter [facility] [address] [place] [id number] Kevin Bertrand MD [address] [place] [address] Uterine size-date discrepancy in third trimester; Low-lying placenta without hemorrhage, third trimester; 29 weeks gestation of Discharge Disposition: Home or Self Care Social [...] Procedure Name Priority Date/Time Associated Diagnosis Comments [facility] Routine 03/28/2025 3:00 PM EST Uterine size-date discrepancy in third trimester Low-lying placenta without hemorrhage, third trimester 29 weeks gestation of documented in this encounter Results * [facility] (03/28/2025 3:00 PM EST) Anatomical Region Laterality Modality Ultrasound 03/28/2025 2:39 PM EST Narrative 03/28/2025 3:11 PM EST PAT NAME: DC CODY [facility] REC#: [id number] DA: [id number] PAT GEND: F PAT TYPE: O EXAM NELY: [id number] REF PHYS TANYA TRIVEDI Comparison Studies The findings of this study [...] EFW (oz) 7 oz EFW by: Hadlock ([id number]) Extended Cav. septi pel. tr 6.5 mm Farm Mechanic 4.6 mm CM 7.8 mm 64% Nicolaides [...] Normal Heart / Thorax 3-vessel view: Normal 0-nypber-gxbnueg view: normal Cord insertion: Normal Stomach: Appears [...] movements 2: tone 2: Amniotic fluid volume 8 Biophysical profile score Consultation / Office Visit Type: Consultation See [facility] for full consult note. Impression Single, viable intrauterine at 33w0d in cephalic lie The placenta is posterior size is appropriate for the established LILIBETH (EFW 31%, AC 28%) The amniotic fluid volume is normal The visualized portions of the anatomy (see table) appear normal The BPP is reassuring (8/) No abnormalities are appreciated within the limitations of ultrasound Recommendation Further ultrasounds/consultation at your discretion Coding ======= Description: 33610-75 Follow Up Ultrasound Description: BPP without NST Talent Specialist: Jeanne Reynoso RDMS Physician: Levi Rojas MD Electronically signed by: Levi Rojas MD at: 15:11 Procedure Note Levi Rojas MD - 03/28/2025 PAT NAME: DC CODY MED REC#: [id number] DA: 2000 PAT GEND: F PAT TYPE: O EXAM NELY: [id number] REF PHYS TANYA TRIVEDI Comparison Studies The findings of this study are compared to the prior ultrasound studydated 02/28/25 Patient Status Outpatient Indication ======== Concern for IUGR, Low lying placenta Maternal Assessment Gilopc360 cm Height (ft)5 ft Height (in)3 in Pfwtfe62 kg Weight (lb)170 lb BMI30.08 kg/m Method ======= Transabdominal ultrasound examination. View: Good view ========= De La Torre . Number of fetuses: 1 Dating ====== GA by prior [id number] w + 0 d LILIBETH by prior [...] GA33 w + 0 d Assigned LILIBETH:05/16/2025 [id number] d Biometry Standard BPD83.6 mm 33w 5d 63% Hadlock OZC325.1 mm 35w 5d 95% Agatha HC307.6 mm 34w 2d 47% Hadlock Cerebellum tr41.4 mm 32w 6d 26% Hill AC281.7 mm 32w 1d 28% Hadlock Femur63.0 mm 32w 4d 28% Hadlock Cawozuv47.4 mm 32w 2d 40% Agatha HC / AC1.09 EFW2,022 g 32w 2d 31% Hadlock EFW (lb)4 lb EFW (oz)7 oz EFW by:Hadlock ([id number]) Extended Cav. septi pel. tr6.5 mm Vp4.6 mm CM7.8 mm 64% Nicolaides Head / Face / Neck Cephalic index0.77 22% Nicolaides Extremities / Bony Struc FL / BPD0.75 FL / HC0.20 FL / AC0.22 Other Structures RAJ570 bpm General Evaluation Cardiac activity present. FHR [...] LVOT view:Normal Heart / Thorax 3-vessel view:Normal 3-gfexmy-dfruxgk view:normal Cord insertion:Normal Stomach:Appears normal Kidneys:Appears normal Bladder:Appears normal Gender:female Wants to know gender:yes Maternal Structures Uterus / Cervix Cervical bewdyo02.1 mm Doppler Arterial Umbilical A PI1.04 78% [...] Further ultrasounds/consultation at your discretion Coding ======= Description:03341-02 Follow Up Ultrasound Description:52490-88 BPP without NST Talent Specialist: Jeanne Reynoso RDMS Physician: Levi Rojas MD Electronically signed by: Levi Rojas MD at: 15:11 us Kevin Bertrand MD IMG US ORDERABLES Final Re sult documented in this encounter Visit Diagnoses Diagnosis Uterine size-date discrepancy in third trimester Low-lying placenta without hemorrhage, third trimester 29 weeks gestation of documented in this encounter Care Teams Leak Patcher Relationship Specialty Start Date End Date Duane Munroe MD [address] [place] [facility] [address] [place] [address] PCP - General 03/21/25 documented as of this encounter
--- OUTSIDE RECORDS SUMMARY | 2025-03-28 15:00 | XMS_ITS | Encounter Summary ---
Author Organization [facility] Address [address] [place] [address] Care Team Providers Care Chief Radiology Name Role Phone Duane Munroe MD Primary Care Provider [phone] Reason for Visit * Reason Comments IUGR concern Encounter Details Date Type Department Care Team (Late st Contact Info) Description 03/28/2025 3:00 PM EST Office Visit [facility] MATERNAL MEDICINE [address] [place], [place] [id number] [place] [address] [place] [address] Encounter for ultrasound to check growth (Primary Dx) Social History Tobacco Use Types Packs/Day Years [...] Sign Reading Time Taken Comments Blood Pressure 126/55 03/28/2025 2:39 PM EST Pulse - - Temperature - - Respiratory Rate - - Oxygen Saturation - - Inhaled Oxygen Concentration - - Weight 77.4 kg (170 lb 9.6 oz) 03/28/2025 2:39 P M EST Height - - Body Mass Index 30.22 02/28/2025 2:52 PM EST documented in this encounter Progress Notes * Levi Rojas MD - 03/28/2025 3:17 PM ESTAssociated Problem(s): Encounter for ultrasound to check growth - First consultation on 02/28/25 with concern for size<dates and growth assessment at that time was normal with EFW 18% and AC 13% with normal UA Doppler studies (though S/D at upper limits of normal at 93%) - US today with normal growth and excellent interval growth and EFW 31%, AC 28% Recommendations: - Continue fundal height screening at each obstetric care visit - No further investigation indicated at this time * Candis Fernández RN - 03/28/2025 3:00 PM EST Denies vaginal bleeding, leaking fluid, and contractions. Endorses normal movement. NIPT negative. Next OB follow-up appointment with Dr. Abreu on 04/02/2025. * Levi Rojas MD - 03/28/2025 3:00 PM EST Images from the original note were not included. Maternal Medicine Follow Up Note Date: 03/28/2025 Name: Treva Cody : 2000 LILIBETH: Estimated Date of Delivery: 05/16/25 Referring Provider: Paulina Abreu DO Chief Complaint: IUGR concern Subjective History of Present Illness: Treva Cody is a 24 y.o. at 33w0d who presents today for follow up consultation given a that is complicated by prior concern for size<dates. Today, she is overall doing well and denies any vaginal bleeding, leakage of fluid, or regular contractions. She reports movement. ROS: Review of Systems Constitutional: Negative for chills and fever. Eyes: Negative for visual disturbance. Respiratory: Negative for cough and shortness of breath. Cardiovascular: Negative for chest pain. Gastrointestinal: Negative for abdominal pain, nausea and vomiting. Genitourinary: Negative for vaginal bleeding. Skin: Negative for rash. Neurological: Negative for headache. Psychiatric/Behavioral: The patient is not nervous/anxious. Objective Vital Signs: BP 126/55 Wt 77.4 kg (170 lb 9.6 oz) Estimated body mass index is 30.22 kg/m?? as calculated from the following: Height as of 02/28/25: 160 cm (63 ). Weight as of this encounter: 77.4 kg (170 lb 9.6 oz). Physical Exam Vitals and nursing note reviewed. Constitutional: General: She is not in acute distress. Appearance: Normal appearance. HENT: Head: Normocephalic. Pulmonary: Effort: Pulmonary effort is normal. No respiratory distress. Abdominal: Tenderness: There is no abdominal tenderness. Skin: General: Skin is warm and dry. Neurological: Mental Status: She is alert. Psychiatric: Mood and Affect: Mood normal. Behavior: Behavior normal. Ultrasound Impression: Single, viable intrauterine at 33w0d in cephalic lie The placenta is posterior size is appropriate for the established LILIBETH (EFW 31%, AC 28%) The amniotic fluid volume is normal The visualized portions of the anatomy (see table) appear normal The BPP is reassuring (8/8) No abnormalities are appreciated within the limitations of ultrasound Assessment and Plan Treva Cody is a 24 y.o. at 33w0d with a that is complicated by the following: Diagnoses and all orders for this visit: 1. Encounter for ultrasound to check growth (Primary) Assessment & Plan: - First consultation on 02/28/25 with concern for size<dates and growth assessment at that time was normal with EFW 18% and AC 13% with normal UA Doppler studies (though S/D at upper limits of normal at 93%) - US today with normal growth and excellent interval growth and EFW 31%, AC 28% Recommendations: - Continue fundal height screening at each obstetric care visit - No further investigation indicated at this time Follow Up: Return as needed. I spent 20 minutes caring for the [...] other procedures such as amniocentesis or CVS. Levi Rojas MD, FACOG Maternal Medicine, [facility] documented in this encounter Plan of Treatment Not on file documented as of this encounter Visit Diagnoses Diagnosis Encounter for ultrasound to check growth- Primary documented in this encounter Care Teams Chief Radiology Relationship Specialty Start Date End Date Duane Munroe MD [address] [facility] [address] [place] [address] PCP - General 03/21/25 documented as of this encounter
[2025-04-09 20:29] LABS: Coronavirus 19, PCR Not Detected (NotDetected); Influenza A, PCR Not Detected (NotDetected); Influenza B, PCR Not Detected (NotDetected)
--- OUTSIDE RECORDS SUMMARY | 2025-04-10 12:13 | XMS_ITS | Encounter Summary ---
Author Organization [facility] Address [address] [place] [address] Care Team Providers Care Accountant Certified Public Name Role Phone Duane Munroe MD Primary Care Provider [phone] Encounter Details Date Type Department Care Team (Latest Contact Info) Description 03/28/2025 Travel Social History Tobacco Use Types Packs/Day Years [...] on file documented as of this encounter Plan of Treatment Not on file documented as of this encounter Visit Diagnoses Not on filedocumented in this encounter Care Teams Accountant Certified Public Relationship Specialty Start Date End Date Duane Munroe MD [address] [facility] [address] [place] [address] PCP - General 03/21/25 documented as of this encounter
--- OUTSIDE RECORDS SUMMARY | 2025-04-10 12:13 | XMS_ITS | Clinical Summary ---
Author Organization [facility] Address [address] [place] [phone] Care Team Providers Care Architectural Project Manager Name Role Phone Duane Munroe MD Primary Care Provider [phone] Allergies No known active allergies Medications famotidine (PEPCID) 20 MG tablet Take 1 tablet by mouth Every 12 (Twelve) Hours. 12/01/2024 Active promethazine (PHENERGAN) 12.5 MG tablet Take 1 tablet by mouth Every 6 (Six) Hours As Needed for Nausea or Vomiting. 12/03/2024 Active vitamin (, CLASSIC, vitamin) tablet Take by mouth Daily. Active Active Problems Problem Noted Date Diagnosed Date Encounter for ultrasound to check growth 1 05/29/2024 Assessment & Plan (03/28/2025 3:17 PM EST): - First consultation on 02/28/25 with concern [...] No further investigation indicated at this time Estimated Date of Delivery Comme nts Yes 05/16/2025 Based on Ultraso und Resolved Problems Problem Noted Date Diagnosed Date Resolved Date 02/28/2025 03/28/2025 Low-lying placenta without h emorrhage, third trimester 02/28/2025 03/28/2025 Uterine size-date discrepanc y in third trimester 02/28/2025 03/28/2025 Assessment & Plan (02/28/2025 3:19 PM EST): Patient referred for fetus size less than [...] for this gestational age. Cervical length appears normal posterior placenta was nearly 5 cm from the [...] regarding movement will contact her provider immediately if she notices any decreased movement. Encounters Date Type Department Care Team Description 03/28/2025 3:00 PM EST Office Visit [facility] MATERNAL MEDICINE [address] [phone] Levi Rojas MD Encounter for ultrasound to check growth (Primary Dx) 03/28/2025 2:36 PM EST - 03/28/2025 11:59 PM EST Hospital Encounter [facility] US PER DIAG [facility] [address] [place] [phone] Kevin Bertrand MD Uterine size-date discrepancy in third trimester; Low-lying placenta without hemorrhage, third trimester; 29 weeks gestation of Discharge Disposition: Home or Self Care 03/28/2025 Travel 02/28/2025 2:30 PM EST Office Visit [facility] MATERNAL MEDICINE [address] [facility] [address] [place] [phone] Kevin Bertrand MD Uterine size-date discrepancy in third trimester (Primary Dx); Low-lying placenta without hemorrhage, third trimester; 29 weeks gestation of 02/28/2025 2:20 PM EST - 02/28/2025 11:59 PM EST Hospital Encounter [facility] US PER [facility] [address] [place] [phone] Paulina Abreu DO Abnormal ultrasound; Low-lying placenta without hemorrhage, third trimester; SGA (small for gestational age), , affecting care of mother, antepartum, third trimester, other fetus Discharge Disposition: Home or Self Care 02/28/2025 Travel from Last 3 Months Social History Tobacco Use Types Packs/Day Years [...] on file Sexual Orientation Not on file Last Filed Vital Signs Vital Sign Reading Time Taken Comments Blood Pressure 126/55 03/28/2025 2:39 PM EST Pulse - - Temperature - - Respiratory Rate - - Oxygen Saturation - - Inhaled Oxygen Concentration - - Weight 77.4 kg (170 lb 9.6 oz) 03/28/2025 2:39 P M EST Height 160 cm (5' 3 ) 02/28/2025 2:52 PM EST Body Mass Index 30.22 02/28/2025 2:52 PM EST Plan of Treatment Health Maintenance Due Date Last Done Comments Annual Gynecologic Pelvic an d Breast Exam 2000 HPV VACCINES (1 - 3-dose series) 07/30/2015 PAP SMEAR 2021 INFLUENZA VACCINE 11/10/2024 ANNUAL PHYSICAL 02/28/2025 HEPATITIS C SCREENING 02/28/2025 RSV Vaccine - Adults (1 - Ri sk 1-dose series) 03/21/2025 TDAP/TD VACCINES (3 - Td or Tdap) 02/21/2035 02/21/2025, 09/08/2023 MENINGOCOCCAL B VACCINE Aged Out No l onger eligible based on patient's age to complete this topic Pneumococcal Vaccine 0-49 Aged Out No longer eligible based on patient's age to complete this topic Procedures Procedure Name Priority Date/Time Associated Diagnosis Comments [facility] Routine 03/28/2025 3:00 PM EST Uterine size-date discrepancy in third trimester Low-lying placenta without hemorrhage, third trimester 29 weeks gestation of [facility] Routine 02/28/2025 3:21 PM EST Abnormal ultrasound Low-lying placenta without hemorrhage, third trimester SGA (small for gestational age), , affecting care of mother, antepartum, third trimester, other fetus from Last 3 Months Results * [facility] (03/28/2025 3:00 PM EST) Only the most recent of2 resultswithin the time period is included. Anatomical Region Laterality Modality Ultrasound 03/28/2025 2:39 PM EST Narrative 03/28/2025 3:11 PM EST PAT NAME: DC CODY [facility] REC#: [id number] DA: [id number] PAT GEND: F PAT TYPE: O EXAM NELY: [id number] REF PHYS PAULINA ABREU Comparison Studies The [...] EFW (oz) 7 oz EFW by: Hadlock ([id number]) Extended Cav. septi pel. tr 6.5 mm Lung Splitter 4.6 mm CM 7.8 mm 64% Nicolaides [...] Normal Heart / Thorax 3-vessel view: Normal 7-qcjnhp-hvflxme view: normal Cord insertion: Normal Stomach: Appears [...] Consultation / Office Visit Type: Consultation See [facility] for full consult note. Impression Single, [...] ultrasounds/consultation at your discretion Coding ======= Description: 75763-87 Follow Up Ultrasound Description: 99742-09 BPP without NST Kiss Machine Operator: Jeanne Reynoso RDMS Physician: Levi Rojas MD Electronically signed by: Levi Rojas MD at: 15:11 Procedure Note Levi Rojas MD - 03/28/2025 PAT NAME: DC CODY MED REC#: [id number] DA: 2000 PAT GEND: F PAT TYPE: O EXAM NELY: [id number] REF PHYS PAULINA ABREU Comparison Studies The findings of this study are compared to the prior ultrasound studydated 02/28/25 Patient Status Outpatient Indication ======== Concern for IUGR, Low lying placenta Maternal Assessment Hpszif259 cm Height (ft)5 ft Height (in)3 in Mnnrgu34 kg Weight (lb)170 lb BMI30.08 kg/m Method ======= Transabdominal ultrasound examination. View: Good view ========= [place] . Number of fetuses: 1 Dating ====== GA by prior [id number] w + 0 d LILIBETH by prior [...] GA33 w + 0 d Assigned LILIBETH:05/16/2025 [id number] d Biometry Standard BPD83.6 mm 33w 5d 63% Hadlock PIA551.1 mm 35w 5d 95% Agtaha HC307.6 mm 34w 2d 47% Hadlock Cerebellum tr41.4 mm 32w 6d 26% Hill AC281.7 mm 32w 1d 28% Hadlock Femur63.0 mm 32w 4d 28% Hadlock Wptylmi20.4 mm 32w 2d 40% Agatha HC / AC1.09 EFW2,022 g 32w 2d 31% Hadlock EFW (lb)4 lb EFW (oz)7 oz EFW by:Hadlock ([id number]-[id number]-FL) Extended Cav. septi pel. tr6.5 mm Vp4.6 mm CM7.8 mm 64% Nicolaides Head / Face / Neck Cephalic index0.77 22% Nicolaides Extremities / Bony Struc FL / BPD0.75 FL / HC0.20 FL / AC0.22 Other Structures PGT541 bpm General Evaluation Cardiac activity present. FHR [...] LVOT view:Normal Heart / Thorax 3-vessel view:Normal 8-gqcpki-bbzhjzr view:normal Cord insertion:Normal Stomach:Appears normal Kidneys:Appears normal Bladder:Appears normal Gender:female Wants to know gender:yes Maternal Structures Uterus / Cervix Cervical qdenyq18.1 mm Doppler Arterial Umbilical A PI1.04 78% [...] ultrasounds/consultation at your discretion Coding ======= Description: Follow Up Ultrasound Description: BPP without NST Kiss Machine Operator: Jeanne Reynoso RDMS Physician: Levi Rojas MD Electronically signed by: Levi Rojas MD at: 15:11 us Kevin Bertrand MD IMG US ORDERABLES Final Re sult from Last 3 Months Insurance EMPLOYEE Care Teams Architectural Project Manager Relationship Specialty Start Date End Date Duane Munroe MD [address] [facility] [address] [place] [address] PCP - General 03/21/25
--- OUTSIDE RECORDS SUMMARY | 2025-04-10 12:13 | XMS_ITS | Encounter Summary ---
Author Organization [facility] Address [address] [place] [address] Care Team Providers Care Kids Club Attendant Name Role Phone Provider, No Known Primary Care Provider Unavail able Encounter Details Date Type Department Care Team (Latest Contact Info) Description 02/28/2025 Travel Social History Tobacco Use Types Packs/Day [...] on filedocumented in this encounter Care Teams Kids Club Attendant Relationship Specialty Start Date End Date Provider, No Known [facility] [place] [place] [address] PCP - General 02/23/25 03/20/25 documented as of this encounter
--- OUTSIDE RECORDS SUMMARY | 2025-04-10 12:13 | XMS_ITS | Patient Health Record ---
Author Organization [facility] Address [address] [place] [id number] Care Team Providers Care Plastic Battery Assembler Name Role Phone bIeth Collado Primary Care Provider [phone] Lauren Garcia [phone] Allergies No Known Allergies Medications Medication SIG (Take, Route, Frequency, Duration) Notes Start Date End Date Status Windham-Linyah 0.25-35 MG-MCG TAKE ONE TABL ET BY [...] Status Risk Notes Problem Seasonal allergic rhinitis (194701078) Seasonal allergic rhinitis (477.9) Active confirmed Problem History and physical examination, sports participation (procedure) (328839485) Routine sports physical exam (Z02.5) Active confirmed Problem Hypoglycemia (992839814) Hypoglycemia (E16.2) Active confirmed Problem Constipation (76092802) Constipation, unspecified constipation type (K59.00) Active confirmed Problem Viral conjunctivitis (40405453) Acute viral conjunctivitis of left eye (B30.9) Active confirmed Plan Of Treatment Pending Test Test Name Order Date colonoscopy 11/12/2023 Insurance Providers Payer Name Payer Address Payer Phone Subscriber Number Group Number Insured Name Patient Relationship to Insured Coverage Start Date Coverage End Date [facility] [address] [address] [place] [address] [id number] Vivi Anand Child - Insured has Financial Responsibility [employer]YAN JOHNS [address] [place] [address] [id number] Vivi Anand Child - Insured has Financial Responsibility Medical (General) History Surgical History Surgery Date(Month/Year) Tonsilectomy, Adenoidectomy 09/2009 Hospitalization History Reason Date(Month/Year)
== END 2025-04-09 23:59 | disposition home or self-care (01) ==
LOC: LAB.DROPOF 04-10 12:09
PROVIDERS: PCP Family Medicine; Visit Provider Nurse Practitioner
DX: J06.9 Acute upper respiratory infection, unspecified (principal); J02.9 Acute pharyngitis, unspecified
CPT/HCPCS: 87631